=== PATIENT | male | born 1955 | race Caucasian/White ===

== ENCOUNTER 2023-02-09 10:14 | Emergency (ER) | payer MEDICARE, SELFPAY ==
[2023-02-09] VITALS (18 sets, daily range): BP systolic 145–197; BP diastolic 89–103; PULSE 54–85; RESP 14–16; TEMP 36.3; O2SAT 96–100; BMI 23.4
--- NOTE | 2023-02-09 10:23 | DI.RAD.S_ITS ---
PROCEDURE: XR FOOT LT MIN 3V INDICATIONS: infection, concern for osteo TECHNIQUE: 3 views of the foot were acquired. COMPARISON: None. FINDINGS: Bones: No fractures or dislocations. No suspicious bony lesions. Soft tissues: No tibiotalar joint effusion. Achilles tendon appears normal. IMPRESSION: No visualized acute fracture or dislocation. However, if clinical concern and/or pain persist, short interval imaging followup in 7-10 days is recommended, as occult injury cannot be definitively excluded. Dictated by: Ana Smith M.D. on 02/09/2023 at 11:23 Approved by: Ana Smith M.D. on 02/09/2023 at 11:24
[2023-02-09 10:59] LABS: Add Manual Diff / Slide Review NO; Basophils Absolute Auto 0 /uL (0-100); Basophils Percent Auto 0.6 % (0-2); Eosinophils Absolute Auto 100 /uL (0-450); Eosinophils Percent Auto 2.7 % (2-4); Hematocrit 36.7 % (41-53); Hemoglobin 12.4 g/dL (13.5-17.5); Lymphocytes Absolute Auto 800 /uL (1100-4500); Lymphocytes Percent Auto 19.9 % (25-40); Mean Corpuscular HGB Conc 33.7 % (30-36); Mean Corpuscular Hemoglobin 33.3 PG (26-34); Mean Corpuscular Volume 98.9 fL (80-100); Monocytes Absolute Auto 300 /uL (0-900); Monocytes Percent Auto 8.3 % (3-14); Neutrophils Absolute Auto 2800 /uL (1500-7000); Neutrophils Percent Auto 68.5 % (50-75); Platelet Count 231 X10^3/uL (150-400); Red Blood Cell Count 3.71 X10^6/uL (4.5-5.9); White Blood Cell Count 4.1 X10^3/uL (4.5-11.0)
[2023-02-09 11:10] LABS: Prothrombin Time 11.4 SECONDS (10.1-12.7)
[2023-02-09] MEDS: SODIUM CHLORIDE 0.9% 1,000 ML 1000 ML IV (11:10)
[2023-02-09 11:13] LABS: PTT Partial Thromboplastin Tim 29 SECONDS (26-36)
[2023-02-09 11:17] LABS: Lactate (Lactic Acid) 1.2 mmol/L (0.7-2.1)
[2023-02-09 11:18] LABS: Alanine Aminotransferase 20 IU/L (<50); Albumin 3.9 g/dL (3.5-5.0); Albumin Globulin Ratio 1.2 (1.0-2.8); Alkaline Phosphatase 65 U/L (38-126); Aspartate Aminotransferase 33 IU/L (17-59); BUN Creatinine Ratio 8.6 (6-22); Bilirubin Total 0.4 mg/dL (0.2-1.3); Blood Urea Nitrogen 5 mg/dL (9-20); Calcium 8.9 mg/dL (8.4-10.2); Carbon Dioxide 28 mmol/L (22-32); Chloride 106 mmol/L (98-107); Estimated Glomerular Filt Rate > 60 mL/min (>60); Globulin 3.2 g/dL (1.7-4.1); Glucose 79 mg/dL (80-110); HEMOLYSIS < 15 (0-50); Lipase 73 U/L (23-300); Potassium 3.8 mmol/L (3.4-5.1); Sodium 141 mmol/L (137-145); Total Protein 7.1 g/dL (6.3-8.2)
[2023-02-09 11:35] LABS: Procalcitonin 0.06 ng/mL (<0.5)
--- NOTE | 2023-02-09 12:48 | ED.SKABFB ---
HPI - Skin/Abscess/Foreign Bdy General Chief complaint: Skin/Abscess/Foreign Body Stated complaint: Infection in left foot, Sent from the walk in Time Seen by Provider: 02/09/23 12:14 Source: patient Mode of arrival: Ambulatory Limitations: no limitations History of Present Illness HPI narrative: Patient sent here from walk-in clinic for complaints of left foot infection. Patient states foot/toe pain ongoing for least 2 months. 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 Denies any fever chills. History of gout disease he is thinks. No history of diabetes. Boot and sock removed. Patient has not been seen by any provider for this infection. Has extensive erosion of the skin on 1st 4 toes. Has necrotic tissue with overlapping granulation tissue on these toes as well. Related Data Home Medications Medication Instructions Recorded Confirmed No Known Home Medications 02/09/23 02/09/23 Allergies Allergy/AdvReac Type Severity Reaction Status Date / Time No Known Drug Allergies Allergy Verified 02/09/23 10:22 Review of Systems Review of Systems Narrative: GENERAL: negative chills, fatigue, malaise, fever, sweats. HEENT: negative sinus pain, ear pain, sore throat RESPIRATORY: negative dyspnea, cough CARDIOVASCULAR: negative chest pain, palpitations GASTROINTESTINAL: negative nausea, vomiting, abdominal pain : negative dysuria, frequency, hematuria MUSCULOSKELETAL: Positive muscle or bony pain SKIN: negative rash, skin lesions, positive skin wound NEUROLOGIC: negative weakness, numbness ROS Unobtainable: All systems reviewed & are unremarkable except as noted in HPI and below Patient History Family History Father Diabetes mellitus Sister Age: 68 Hypertension Social History Smoking Status: Never smoker Smoking Status: Never smoker alcohol intake frequency: 0-2 drinks per day Substance Use Type: does not use Exam Narrative Exam Narrative: GENERAL: in no distress, not toxic not dyspneic HEAD: Normocephalic. EYES: Pupils equal round EXTREMITIES: No gross deformities. Examination left foot and ankle. Foot is malodorous. There is extensive skin erosion cellulitis necrotic skin to the 1st 4 toes. Sparing the 5th toe. Palpable pedal pulse. Foot otherwise warm and pink and soft. No crepitus. No pain out of proportion to exam NEURO: AOx4. SKIN: Warm and dry PSYCH: Not anxious, is cooperative Initial Vital Signs Initial Vital Signs: Vital Signs Temperature 97.4 F L 02/09/23 10:19 Pulse Rate 74 02/09/23 10:19 Respiratory Rate 14 02/09/23 10:19 Blood Pressure 178/103 H 02/09/23 10:19 Pulse Oximetry 99 02/09/23 10:19 Oxygen Delivery Method Room Air 02/09/23 10:19 Course Orders Ordered: Discontinued Medications Diphtheria/Tetanus/Acell Pertussis (Tet,Diph,Pertuss(Acell),Vac/Pf 0.5 Ml Syringe) 0.5 ml IM .ONCE ONE Stop: 02/09/23 14:43 Last Admin: 02/09/23 16:19 Dose: 0.5 ml Documented By: RB Sodium Chloride (Normal Saline 0.9%) 1,000 mls @ 1,000 mls/hr IV BOLUS ONE Stop: 02/09/23 11:22 Last Infusion: 02/09/23 12:29 Dose: 0 mls/hr Documented By: Admin: 02/09/23 11:10 Dose: 1,000 mls/hr Documented By: AT Ceftriaxone Sodium 2,000 mg/ (Sodium Chloride) 100 mls @ 200 mls/hr IV NOW ONE Stop: 02/09/23 14:45 Last Infusion: 02/09/23 16:47 Dose: 0 mls/hr Documented By: Admin: 02/09/23 16:19 Dose: 200 mls/hr Documented By: RB Vancomycin HCl (Vancomycin) 1,250 mg in 250 mls @ 166.667 mls/hr IV Q8H LILIAN Last Infusion: 02/09/23 16:44 Dose: 0 mls/hr Documented By: Admin: 02/09/23 16:44 Dose: 166.667 mls/hr Documented By: RB Morphine Sulfate (Morphine 4 Mg/Ml Inj) 4 mg IV NOW ONE Stop: 02/09/23 14:19 Last Admin: 02/09/23 14:42 Dose: 4 mg Documented By: RB Morphine Sulfate (Morphine 4 Mg/Ml Inj) 4 mg IV NOW ONE Stop: 02/09/23 16:45 Last Admin: 02/09/23 16:46 Dose: 4 mg Documented By: RB Ondansetron HCl (Ondansetron 4 Mg/2 Ml Inj) 4 mg IV NOW PRN PRN Reason: Nausea And Vomiting Ondansetron HCl (Ondansetron 4 Mg/2 Ml Inj) 4 mg IV NOW ONE Stop: 02/09/23 14:19 Last Admin: 02/09/23 14:42 Dose: 4 mg Documented By: EVANGELINA Vancomycin HCl (Vancomycin Per Pharmacy) 1 request MISC NOW ONE Stop: 02/09/23 14:19 Last Admin: 02/09/23 16:08 Dose: Not Given Documented By: EVANGELINA Vancomycin HCl (Vancomycin Trough) 1 request MISC 1430 ONE Stop: 02/10/23 14:31 Vital Signs Vital signs: Vital Signs - 8 hr 02/09/23 10:19 02/09/23 10:45 02/09/23 11:00 Temperature 97.4 F L Pulse Rate 74 75 Respiratory Rate 14 Blood Pressure 178/103 H 145/89 H Pulse Oximetry 99 98 Oxygen Delivery Method Room Air Room Air 02/09/23 11:00 02/09/23 11:30 02/09/23 12:00 Temperature Pulse Rate 67 59 L 54 L Respiratory Rate 16 Blood Pressure Pulse Oximetry 98 100 99 Oxygen Delivery Method 02/09/23 12:16 02/09/23 12:16 02/09/23 12:30 Temperature Pulse Rate 72 77 Respiratory Rate Blood Pressure 189/94 H Pulse Oximetry 100 99 Oxygen Delivery Method 02/09/23 12:31 02/09/23 12:31 02/09/23 13:00 Temperature Pulse Rate 78 Respiratory Rate Blood Pressure 197/98 H 177/94 H Pulse Oximetry 99 Oxygen Delivery Method 02/09/23 13:00 02/09/23 13:30 02/09/23 13:30 Temperature Pulse Rate 71 68 Respiratory Rate Blood Pressure 164/92 H Pulse Oximetry 98 98 Oxygen Delivery Method 02/09/23 14:00 02/09/23 14:00 02/09/23 14:15 Temperature Pulse Rate 70 75 Respiratory Rate Blood Pressure 179/93 H Pulse Oximetry 98 98 Oxygen Delivery Method 02/09/23 14:15 02/09/23 14:30 02/09/23 14:30 Temperature Pulse Rate 75 Respiratory Rate 16 Blood Pressure 178/89 H 175/95 H Pulse Oximetry 98 Oxygen Delivery Method Room Air MDM - Skin/Abscess/Foreign Bdy Lab Data 02/09/23 10:40 02/09/23 10:40 Labs: Lab Results 02/09/23 02/09/23 02/09/23 Range/Units 10:40 10:40 10:40 WBC 4.1 L (4.5-11.0) X10^3/uL RBC 3.71 L (4.5-5.9) X10^6/uL Hgb 12.4 L (13.5-17.5) g/dL Hct 36.7 L (41-53) % MCV 98.9 (80-100) fL MCH 33.3 (26-34) PG MCHC 33.7 (30-36) % RDW 14.0 (11.6-14.8) % Plt Count 231 (150-400) X10^3/uL Neut % (Auto) 68.5 (50-75) % Lymph % (Auto) 19.9 L (25-40) % [place] % (Auto) 8.3 (3-14) % Eos % (Auto) 2.7 (2-4) % Baso % (Auto) 0.6 (0-2) % Neut # (Auto) 2800 (4509-2170) /uL Lymph # (Auto) 800 L (7064-0583) /uL [place] # (Auto) 300 (0-900) /uL Eos # (Auto) 100 (0-450) /uL Baso # (Auto) 0 (0-100) /uL PT 11.4 (10.1-12.7) SECONDS INR 1.0 (0.9-1.3) APTT 29 (26-36) SECONDS Sodium 141 (137-145) mmol/L Potassium 3.8 (3.4-5.1) mmol/L Chloride 106 (98-107) mmol/L Carbon Dioxide 28 (22-32) mmol/L BUN 5 L (9-20) mg/dL Creatinine 0.58 L (0.66-1.25) mg/dL Estimated GFR > 60 (>60) mL/min BUN/Creatinine Ratio 8.6 (6-22) Glucose 79 L (80-110) mg/dL Lactate (0.7-2.1) mmol/L Calcium 8.9 (8.4-10.2) mg/dL Total Bilirubin 0.4 (0.2-1.3) mg/dL AST 33 (17-59) IU/L ALT 20 (<50) IU/L Alkaline Phosphatase 65 (38-126) U/L Total Protein 7.1 (6.3-8.2) g/dL Albumin 3.9 (3.5-5.0) g/dL Globulin 3.2 (1.7-4.1) g/dL Albumin/Globulin Ratio 1.2 (1.0-2.8) Lipase 73 (23-300) U/L Procalcitonin 0.06 (<0.5) ng/mL SARS-CoV-2 (PCR) (Negative) 02/09/23 02/09/23 Range/Units 10:40 12:26 WBC (4.5-11.0) X10^3/uL RBC (4.5-5.9) X10^6/uL Hgb (13.5-17.5) g/dL Hct (41-53) % MCV (80-100) fL MCH (26-34) PG MCHC (30-36) % RDW (11.6-14.8) % Plt Count (150-400) X10^3/uL Neut % (Auto) (50-75) % Lymph % (Auto) (25-40) % [place] % (Auto) (3-14) % Eos % (Auto) (2-4) % Baso % (Auto) (0-2) % Neut # (Auto) (9021-9724) /uL Lymph # (Auto) (9587-6723) /uL [place] # (Auto) (0-900) /uL Eos # (Auto) (0-450) /uL Baso # (Auto) (0-100) /uL PT (10.1-12.7) SECONDS INR (0.9-1.3) APTT (26-36) SECONDS Sodium (137-145) mmol/L Potassium (3.4-5.1) mmol/L Chloride (98-107) mmol/L Carbon Dioxide (22-32) mmol/L BUN (9-20) mg/dL Creatinine (0.66-1.25) mg/dL Estimated GFR (>60) mL/min BUN/Creatinine Ratio (6-22) Glucose (80-110) mg/dL Lactate 1.2 (0.7-2.1) mmol/L Calcium (8.4-10.2) mg/dL Total Bilirubin (0.2-1.3) mg/dL AST (17-59) IU/L ALT (<50) IU/L Alkaline Phosphatase (38-126) U/L Total Protein (6.3-8.2) g/dL Albumin (3.5-5.0) g/dL Globulin (1.7-4.1) g/dL Albumin/Globulin Ratio (1.0-2.8) Lipase (23-300) U/L Procalcitonin (<0.5) ng/mL SARS-CoV-2 (PCR) Negative (Negative) Imaging Data Extremity x-ray #1: Radiologist's Impression: PROCEDURE: XR FOOT LT MIN 3V INDICATIONS: infection, concern for osteo TECHNIQUE: 3 views of the foot were acquired. COMPARISON: None. FINDINGS: Bones: No fractures or dislocations. No suspicious bony lesions. Soft tissues: No tibiotalar joint effusion. Achilles tendon appears normal. IMPRESSION: No visualized acute fracture or dislocation. However, if clinical concern and/or pain persist, short interval imaging followup in 7-10 days is recommended, as occult injury cannot be definitively excluded. Dictated by: Ana Smith M.D. on 02/09/2023 at 11:23 Approved by: Ana Smith M.D. on 02/09/2023 at 11:24 Extremity x-ray #2: Radiologist's Impression: PROCEDURE:? MR FOOT LT WO/W CON ? INDICATIONS:? Left foot infection ? TECHNIQUE:? Noncontrast coronal T1 spin echo and STIR, sagittal T1 spin echo with fat saturation and STIR, axial T1 spin echo and T2 fast spin echo with fat saturation.? After the administration of contrast, axial/sagittal/coronal T1 spin echo with fat saturation through the left foot.? ? [facility], 10:26. ? FINDINGS:? Image quality:? Excellent.? ? Bones:? Bipartite lateral sesamoid of 1st metatarsal head is seen.? There is marrow edema involving medial sesamoid of 1st metatarsal head.? No discrete fracture line is seen.? Moderate osteoarthritic changes are seen involving articulation between 1st metatarsal head and medial sesamoid bone.? [id number]-[id number] osteoarthritic changes are also noted involving rest of the midfoot and forefoot joints particularly involving 1st MTP joint.? No other area of marrow edema.? No metatarsal stress fractures.? No suspicious intraosseous lesion or area of abnormal intraosseous enhancement ? Soft tissues:? Soft tissue edema and swelling over dorsal aspect of midfoot and forefoot is seen .? No discrete drainable peripherally enhancing fluid collection is seen.? No enhancing soft tissue mass.? The scanned muscles demonstrate normal overall bulk and internal signal.? Extensor and flexor tendons of left foot are intact.? Lisfranc ligament and joint is intact. ? IMPRESSION:? 1. Soft tissue swelling and edema over dorsal aspect of midfoot and forefoot which may indicate cellulitis.? No discrete drainable abscess collection is noted. ? 2. Osteoarthritic changes throughout midfoot and forefoot joints with suggestion of sesamoiditis involving medial sesamoid of 1st metatarsal bone.? No definite MR evidence of osteomyelitis.? No metatarsal stress fractures. ? 3. Extensor tendons and ligaments are intact.? No enhancing soft tissue mass.? No abnormal intramuscular enhancement. ? ? Dictated by: Truman Campos M.D. on 02/09/2023 at 15:52 ? ? Approved by: Truman Campos M.D. on 02/09/2023 at 16:04 ? [facility] Narrative Medical decision making narrative: Patient sent here from walk-in clinic for complaints of left foot infection. Patient states foot/toe pain ongoing for least 2 months. 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 Denies any fever chills. History of gout disease he is thinks. No history of diabetes. Boot and sock removed. Patient has not been seen by any provider for this infection. Has extensive erosion of the skin on 1st 4 toes. Has necrotic tissue with overlapping granulation tissue on these toes as well. After history and exam CBC CMP procalcitonin lactic acid x-ray left foot ordered vancomycin GUNJAN CC: Left foot infection Complicating co-morbidities: Ongoing 2 months Data collected from: Patient Medical records reviewed: Seen at walk-in clinic prior to arrival Differential considered: Includes but not limited to diabetic foot/cellulitis/necrotizing fasciitis/osteomyelitis Exam documented above, pertinent findings include: Necrotic tissue of the toes Lab Test results independently reviewed as above. Pertinent findings: WBC 4.1 hemoglobin 12.4 sodium 141 potassium 3.8 creatinine 0.58 glucose 79 lactic acid 1.2 procalcitonin 0.06 Imaging studies independently reviewed: PROCEDURE:? XR FOOT LT MIN 3V ? INDICATIONS:? infection, concern for osteo ? TECHNIQUE:? 3 views of the foot were acquired.? ? COMPARISON:? None. ? FINDINGS:? ? Bones:? No fractures or dislocations.? No suspicious bony lesions.? ? Soft tissues:? No tibiotalar joint effusion.? Achilles tendon appears normal.? ? ? IMPRESSION:? No visualized acute fracture or dislocation. However, if clinical concern and/or pain persist, short interval imaging followup in 7-10 days is recommended, as occult injury cannot be definitively excluded. ? ? Dictated by: Ana Smith M.D. on 02/09/2023 at 11:23 ? ? Approved by: Ana Smith M.D. on 02/09/2023 at 11:24 ? PROCEDURE:? MR FOOT LT WO/W CON ? INDICATIONS:? Left foot infection ? TECHNIQUE:? Noncontrast coronal T1 spin echo and STIR, sagittal T1 spin echo with fat saturation and STIR, axial T1 spin echo and T2 fast spin echo with fat saturation.? After the administration of contrast, axial/sagittal/coronal T1 spin echo with fat saturation through the left foot.? ? COMPARISON:? [facility], , XR FOOT LT MIN 3V, 02/09/2023, 10:26. ? FINDINGS:? Image quality:? Excellent.? ? Bones:? Bipartite lateral sesamoid of 1st metatarsal head is seen.? There is marrow edema involving medial sesamoid of 1st metatarsal head.? No discrete fracture line is seen.? Moderate osteoarthritic changes are seen involving articulation between 1st metatarsal head and medial sesamoid bone.? Yiwg-sv-[id number] osteoarthritic changes are also noted involving rest of the midfoot and forefoot joints particularly involving 1st MTP joint.? No other area of marrow edema.? No metatarsal stress fractures.? No suspicious intraosseous lesion or area of abnormal intraosseous enhancement ? Soft tissues:? Soft tissue edema and swelling over dorsal aspect of midfoot and forefoot is seen .? No discrete drainable peripherally enhancing fluid collection is seen.? No enhancing soft tissue mass.? The scanned muscles demonstrate normal overall bulk and internal signal.? Extensor and flexor tendons of left foot are intact.? Lisfranc ligament and joint is intact. ? IMPRESSION:? 1. Soft tissue swelling and edema over dorsal aspect of midfoot and forefoot which may indicate cellulitis.? No discrete drainable abscess collection is noted. ? 2. Osteoarthritic changes throughout midfoot and forefoot joints with suggestion of sesamoiditis involving medial sesamoid of 1st metatarsal bone.? No definite MR evidence of osteomyelitis.? No metatarsal stress fractures. ? 3. Extensor tendons and ligaments are intact.? No enhancing soft tissue mass.? No abnormal intramuscular enhancement. ? ? Dictated by: Truman Campos M.D. on 02/09/2023 at 15:52 ? ? Approved by: Truman Campos M.D. on 02/09/2023 at 16:04 ? Consultations: 1:[address] Marvin, on-call Orthopedics. We do have a problem with operating room whether materials are available due to recent contamination issues. Patient will likely need to be transferred. 1:[address] Fitch, podiatry with [facility]. He will see patient in consult if admitted to hospitalist. 1:[address] Palmer, podiatry with [facility], he will see patient in consult if admitted to hospitalist 2:[address] Marvin, at this time operating room may be able to accommodate certain cases including this patient. However, he states patient may not need urgent surgery today but may need IV antibiotics and will monitor for improvement, operating room may be able to accommodate tomorrow. He would like MRI of the foot to be done now. 12:25 p.m.. Spoke with [facility], hospitalist, Dr. Oshea, he will accept patient Treatments: Vancomycin, Rocephin, morphine, Zofran Re-evaluations: Reviewed results with patient. Agrees for transfer, needs IV antibiotics possible surgery. Discussion: Appropriate for admission. Patient will need IV antibiotics and likely debridement of the skin. Diagnosis: Foot cellulitis Discharge Plan Departure Patient Disposition: Admitted As Inpatient Clinical Impression: Cellulitis
[2023-02-09 12:51] LABS: COVID19 -Nasal RAPID Negative (Negative)
--- NOTE | 2023-02-09 14:39 | DI.MRI.S_ITS ---
PROCEDURE: MR FOOT LT WO/W CON INDICATIONS: Left foot infection TECHNIQUE: Noncontrast coronal T1 spin echo and STIR, sagittal T1 spin echo with fat saturation and STIR, axial T1 spin echo and T2 fast spin echo with fat saturation. After the administration of contrast, axial/sagittal/coronal T1 spin echo with fat saturation through the left foot. COMPARISON: [facility], CR, XR FOOT LT MIN 3V, 02/09/2023, 10:26. FINDINGS: Image quality: Excellent. Bones: Bipartite lateral sesamoid of 1st metatarsal head is seen. There is marrow edema involving medial sesamoid of 1st metatarsal head. No discrete fracture line is seen. Moderate osteoarthritic changes are seen involving articulation between 1st metatarsal head and medial sesamoid bone. Llgz-ac-[id number] osteoarthritic changes are also noted involving rest of the midfoot and forefoot joints particularly involving 1st MTP joint. No other area of marrow edema. No metatarsal stress fractures. No suspicious intraosseous lesion or area of abnormal intraosseous enhancement Soft tissues: Soft tissue edema and swelling over dorsal aspect of midfoot and forefoot is seen . No discrete drainable peripherally enhancing fluid collection is seen. No enhancing soft tissue mass. The scanned muscles demonstrate normal overall bulk and internal signal. Extensor and flexor tendons of left foot are intact. Lisfranc ligament and joint is intact. IMPRESSION: 1. Soft tissue swelling and edema over dorsal aspect of midfoot and forefoot which may indicate cellulitis. No discrete drainable abscess collection is noted. 2. Osteoarthritic changes throughout midfoot and forefoot joints with suggestion of sesamoiditis involving medial sesamoid of 1st metatarsal bone. No definite MR evidence of osteomyelitis. No metatarsal stress fractures. 3. Extensor tendons and ligaments are intact. No enhancing soft tissue mass. No abnormal intramuscular enhancement. Dictated by: Truman Campos M.D. on 02/09/2023 at 15:52 Approved by: Truman Campos M.D. on 02/09/2023 at 16:04
[2023-02-09] MEDS: ONDANSETRON 4 MG/2 ML INJ IV (14:42)
[2023-02-09] MEDS: MORPHINE 4 MG/ML INJ IV ×2 (14:42→16:46)
[2023-02-09] MEDS: cefTRIAXone 2,000 MG in SODIUM CHLORIDE 0.9% 100 ML 200 MG IV (16:19)
[2023-02-09] MEDS: TET,DIPH,PERTUSS(ACELL),VAC/PF 0.5 ML SYRINGE IM (16:19)
--- NOTE | 2023-02-09 16:26 | PC.NURSE ---
Patient left for MRI when there was a pharmacy dose vancomycin order. Patient not in room to receive IV antibiotics when ordered. This RN began administration upon return.
[2023-02-09] MEDS: VANCOMYCIN 1,250 MG/250 ML PIGGYBACK 166.667 MG IV (16:44)
--- NOTE | 2023-02-09 16:45 | PC.NURSE ---
Vanncomycin 1.25g per 250ml scanned and given to SANDRITA Bruce Dassel transport for administration in route.
--- OUTSIDE RECORDS SUMMARY | 2023-10-28 08:59 | XMS_ITS ---
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, left ([facility]) Trina Watkins DO [address] [place] [address] [address] Referral ID Status Reason Start Date Expiration Date Visits Requested Visits Authorized [id number] Authorized Specialty Services Required 02/12/2023 02/07/2024 6 6 Reason for Visit * Auth/Cert (Routine) Specialty Diagnoses / Procedures Referred By Marshall patel Referred To Contact Diagnoses 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, left ([facility]) Procedures INPATIENT Referral ID Status Reason Start Date Expiration Date Visits Re quested Visits Authorized [id number] 1 1 Encounter Details Date Type Department Care Team Description 02/09/2023 5:33 PM PDT - 02/13/2023 1:50 PM PDT Hospital Encounter [facility] [address] [place], [place] [id number] Monty Oshea DO [address], [place] [id number] Figueroa Robbins MD [address] [place], [place] [id number] Trina Watkins DO [address] [place] [address] Dior Coy MD 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, left ([facility]-HCC) (Primary Dx) Discharge Disposition: Home/Self Care Allergies No known active allergiesdocumented as of this encounter (statuses as of 10/08/2023) Medications Medication Sig Dispensed Refills Start Date End Date Status ibuprofen (ADVIL,MOTRIN) 200 mg tablet Take 1 tablet (200 mg total) by mouth every 6 (six) hours as needed for mild pain 0 Active lactobacillus rhamnosus GG (CULTURELLE) 10 billion cell Take 1 capsule by mouth daily 3000 capsule 11 02/12/2023 02/12/2024 Active amoxicillin-pot clavulanate (AUGMENTIN) 875-125 mg Take 1 tablet by mouth 2 (two) times a day for 14 days 28 tablet 0 02/13/2023 02/27/2023 HYDROcodone-acetam inophen (NORCO) 5-325 mgIndications:Shipping Checker marleny foot ulcer with necrosis of bone, left (CMS-HCC) Take 1 tablet by mouth every 4 (four) hours as needed for moderate pain for up to 7 days 30 tablet 0 02/12/2023 02/19/2023 lisinopriL (PRINIVIL) 10 mg tablet Take 1 tablet (10 mg total) by mouth daily 30 tablet 0 02/13/2023 03/15/2023 acetaminophen (TYLENOL) 325 mg tablet Take 2 tablets (650 mg total) by mouth every 4 (four) hours as needed for mild pain ((1-3)) for up to 10 days 30 tablet 0 02/12/2023 02/22/2023 polyethylene glycol (GLYCOLAX) 17 gram packet Take 17 g by mouth daily for 5 days 5 packet 0 02/13/2023 02/18/2023 documented as of this encounter (statuses as of 10/08/2023) Active Problems Problem Noted Date Diagnosed Date 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 No 02/10/2023 Within the last year, have y ou been humiliated or emotionally abused in other ways by your partner or ex-partner? No Within the last year, have y ou been kicked, hit, slapped, or otherwise physically hurt by your partner or ex-partner? No 02/10/2023 Within the last year, have y ou been raped or forced to have any kind of sexual activity by your partner or ex-partner? No 02/10/2023 Overall Financial Resource Strain (CARDIA) Answe r Date Recorded How hard is it for you to pa y for the very basics like food, housing, medical care, and heating? Not very hard 02/10/2023 Hunger Vital Sign Answer Date Recorded Within the past 12 months, y ou worried that your food would run out before you got the money to buy more. Never true 02/11/20 23 Within the past 12 months, t he food you bought just didn't last and you didn't have money to get more. Never true 02/10/2023 PRAPARE - Transportation Answer Date Re corded In the past 12 months, has l ack of transportation kept you from medical appointments or from getting medications? No 01/27 In the past 12 months, has l ack of transportation kept you from meetings, work, or from getting things needed for daily living? No 02/10/2023 Housing Stability Vital Sign Answer Antonio e Recorded In the last 12 months, was t here a time when you were not able to pay the mortgage or rent on time? No 02/10/2023 In the last 12 months, how many places have you lived? 0 02/10/2023 In the last 12 months, was t here a time when you did not have a steady place to sleep or slept in a usp (including now)? No 02/10/2023 Sex and Gender Information Value Date Recorded Sex Assigned at Male 02/09/2023 6:46 PM PDT Gender Identity Male 02/09/2023 6:46 PM PDT Sexual Orientation Straight 02/09/2023 6: 46 PM PDT Job Start Date Occupation Industry Not on file Not on file Not on file COVID-19 Exposure Response Date Recorded In the last 10 days, have yo u been in contact with someone who was confirmed or suspected to have Coronavirus/COVID-19? No / Unsure 02/10/2023 7:21 PM PDT documented as of this encounter Last Filed Vital Signs Vital Sign Reading Time Taken Comments Blood Pressure 129/69 02/13/2023 8:09 AM PDT Pulse 68 02/13/2023 8:09 AM PDT Temperature 36.9 ??C (98.4 ??F) 02/13/2023 8:09 AM PD T Respiratory Rate 20 02/13/2023 8:09 AM PDT Oxygen Saturation 98% 02/13/2023 8:09 AM PDT Inhaled Oxygen Concentration - - Weight 75.1 kg (165 lb 9.1 oz) 02/09/2023 5:39 PM PDT Height 182.9 cm (6' 0.01) 02/09/2023 5:39 PM PD T Body Mass Index 22.45 02/09/2023 5:39 PM PDT documented in this encounter Discharge Summaries * Trina Watkins DO - 02/13/2023 7:27 AM PDT [facility]: DISCHARGE SUMMARY Patient Name: Henry Thomas Date of : 1955 Age: 67 y.o. Code Status: Full Code Primary Care Physician: None Selected Pcp Admitting Provider: Dior Coy MD Attending Provider: Trina Watkins DO Admit Date: 02/09/2023 Hospital Day: 3 Follow up plan: Follow up with PCP (None Selected Pcp) within 6 days. Pending Tests and other issues requiring follow up: Multidisciplinary Rounds Note: The patient was discussed with the RN on the day of this note : YES, non bedside. Brief Reason for Admission From the H&P performed by Dior Coy MD on 02/09/2023: Henry Thomas is a 67 y.o. male with no significant past medical history who was transferred [facility] for surgical intervention of his left foot. Hospital Course Summary Statement: The patient was admitted to the hospital for a wound ulcer that needed to be seen by podiatry patient was started immediately on IV antibiotics and then transition to oral antibiotics upon discharge. Patient was seen by podiatry who did a bedside debridement on February 10 and and was seen by wound care as well. At this time they are recommending the patient discharged home on Augmentin 875 mg twice daily and follow-up at [facility] for treatment at [facility] and using hyperbaric oxygen therapy. Patient is able to weight bear as tolerated in the post op shoe per podiatry. Of note the patient was found to be prediabetic with a hemoglobin A1c of 5.7. Patient was educated on carb consistent diet. Patient states that he will follow-up with primary care. Patient was also started on 10 mg of lisinopril due to the patient having significant hypertension. Patient will follow-up with PCP who will either increase or decrease this medication. By problem: Chronic necrotic ulcers??of the left foot,??present on admission. ??Active. -X-ray foot negative for osteomyelitis -MRI shows??soft tissue swelling and edema no discreet abcesses, osteoarthritis noted -CRP??wnl -No blood cultures taken on admission -MRSA screen negative -Afebrile, no leukocytosis -No evidence of claudication,??good peripheral pulses -Tdap administered at [facility] -Pain??management?? -Podiatry consulted and feel that this might have been secondary to frostbite -Bedside debridement on 02/10 and 02/12 -Continue Rocephin 2 g daily discontinued 02/12 -Start Augmentin 875mg BID for 14 days on 02/13 -Discontinue vancomycin 02/11 ?? Hypertension, present admission. ??Active. -Hypertensive at [facility] at 178/103, not on any home antihypertensives -Lisinopril 10mg daily initiated? Prediabetes, present on admission, active -Hemoglobin A1c 5.7 -Patient counseled on weight loss and decreasing carbs ?? Alcohol dependence, present condition. ??Active. -3 to 4 glasses??of red wine nightly -Has never gone through withdrawal -[facility] protocol in place currently no signs of withdrawal -Daily thiamine and vitamin ?? Chronic problems: -Possible gout, not on any home medications? 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 Discharge Medications Medication List START taking these medications acetaminophen 325 mg tablet Commonly known as: TYLENOL Take 2 tablets (650 mg total) by mouth every 4 (four) hours as needed for mild pain ((1-3)) for up to 10 days amoxicillin-pot clavulanate 875-125 mg Commonly known as: AUGMENTIN Take 1 tablet by mouth 2 (two) times a day for 14 days HYDROcodone-acetaminophen 5-325 mg Commonly known as: NORCO Take 1 tablet by mouth every 4 (four) hours as needed for moderate pain for up to 7 days lactobacillus rhamnosus GG 10 billion cell Commonly known as: CULTURELLE Take 1 capsule by mouth daily lisinopriL 10 mg tablet Commonly known as: PRINIVIL Take 1 tablet (10 mg total) by mouth daily polyethylene glycol 17 gram packet Commonly known as: GLYCOLAX Take 17 g by mouth daily for 5 days CONTINUE taking these medications ibuprofen 200 mg tablet Commonly known as: ADVIL,MOTRIN Where to Get Your Medications These medications were sent to [id number] [address] acetaminophen 325 mg tablet amoxicillin-pot clavulanate 875-125 mg HYDROcodone-acetaminophen 5-325 mg lactobacillus rhamnosus GG 10 billion cell lisinopriL 10 mg tablet polyethylene glycol 17 gram packet OBJECTIVE First recorded vitals: Temp: 36.2 ??C (97.1 ??F) - BP: (!) 186/98 - Heart Rate: 79 - Resp: 18 - SpO2: 97 % Most recent vitals: Temp: 36.8 ??C (98.3 ??F) - BP: (!) 144/88 - Heart Rate: 73 - Resp: 16 - SpO2: 99 % I have seen and examined Henry Thomas on 02/13/2023. LABS & DIAGNOSTICS Hematology Results from last 7 days Lab Units 02/12/23 0615 02/11/23 0536 02/10/23 0558 WBC AUTO x10e3/uL 4.3 5.0 4.0 HEMOGLOBIN g/dL 10.7* 10.2* 10.2* HEMATOCRIT % 32.0* 31.9* 31.6* MCV fL 99 104* 103* PLATELETS AUTO x10e3/uL 176 185 186 Chemistry Results from last 7 days Lab Units 02/12/23 0615 02/11/23 0536 02/10/23 0558 02/09/23 1826 SODIUM mmol/L 138 136 136 141 POTASSIUM mmol/L 3.9 4.3 4.0 4.8 CHLORIDE mmol/L 108* 106 108* 110* CO2 mmol/L 27 26 26 24 BUN mg/dL 6.6* 7.9* 9.2 5.1* CREATININE mg/dL 0.56* 0.59* 0.60* 0.57* GLUCOSE mg/dL 85 100* 92 70 CALCIUM, SERUM mg/dL 8.5 8.7 8.3* 8.4* MAGNESIUM mg/dL 1.8 -- -- -- AST U/L 19 -- -- 36 ALT U/L 14 -- -- 18 BILIRUBIN TOTAL mg/dL 0.3 -- -- 0.4 ALBUMIN g/dL 2.8* -- -- 3.4 TOTAL PROTEIN g/dL 5.2* -- -- 6.1* Estimated Creatinine Clearance: 77.2 mL/min (A) (by C-G formula based on SCr of 0.56 mg/dL (L)). IMAGING No results found. Activity Usual activity as tolerated. Functional status prior to admission: (Optional): Ambulatory Functional expectation at discharge : (Optional): Ambulatory Advanced Care Planning Code Status: Full Code Allergies No Known Allergies This discharge summary has been routed to None Selected Pcp via [employer] srlet message or fax. Readmission Prevention: Has the discharge teach-back been completed: Yes Has a PCP appt been ordered post hospitalization 6 days after DC? Yes Has this been communicated with the PCP by the time the DC has taken place? N/A I spent 35 minutes in preparation of discharge for Henry Thomas. Greater than 50% of that timewas dedicated to patient counseling and coordination of care. Thank you for allowing me to participate in the care of Henry Thomas. Electronically signed by: Trina Watkins DO 02/13/2023 7:27 AM Portions of today's documentation have been created with the assistance of voice recognition software. Therefore, it may contain anomalous punctuation, anomalous independent misrecognitions, word substitutions, insertions or omissions. Occasional wrong-word or phonetically similar substitutions mayalso occur, all due to the inherent limitations of voice recognition software. Attempts to correct the above have been made by Trina Watkins DO but it is recommended that the chart be read carefully to recognize, using context, where the substitutions may have occurred. documented in this encounter Discharge Instructions * Discharge Instructions* Trina Watkins DO - 02/12/2023 4:44 PM PDT You were admitted to the hospital and it looks like you had an ulcer from abraham bite. Please continue to follow up with the wound care clinic and with a primary care clinic as well. It is recommendedthat you continue taking the medication Augmentin for the next 14 days starting tomorrow 02/13/23. Sometimes antibiotics can cause you to have loose stools, so it is recommended that you start taking a probiotic daily. If you have 3-4 bouts of diarrhea within one day please contact your primary care provider immediately. Please take your probiotic in the afternoon so that it does not interfere with your antibiotic. You are also now considered prediabetic and it is recommended that you decrease your carb intake and increase fresh fruits and vegetables. It was also noted that you have high blood pressure and it is recommended that you start lisinopril 10mg daily. It is also recommended that you see your primarycare doctor at least once a year. Please follow-up with your primary care provider in the next 6 days. If an appointment has not beenmade please call to schedule an appointment * Discharge Instr - Other Orders* Sondra Lagunas RN - 02/12/2023 7:11 PM PDT Wound Care Directions: -Ok to wash wounds in the shower but protect from direct spray for pain control. -Ok to wash wounds with clean or sterile water or wound cleanser (bottle in supplies). -Pat wounds dry. Cut small square of Aquacel Ag dressing and place between third and fourth toes.(This dressing is light perez, comes in a white and silver package) -Cut 2 pieces of Hydrofera Blue Ready (blue foam in white package) to cover toes. You can tape themlightly in place if needed while you wrap toes. -Wrap toes with long roll gauze to secure blue dressing in place. -Change dressings every 2 days, or if you notice they get wet, or if they are draining so much thatyou see blood or fluid on the dressings. -Seek immediate care if redness and swelling increases, or if your wounds begin to drain anything but clear fluid or bloody fluid. Either of these changes would indicate an infection. -Please follow up with [facility]. Your wounds need professional care to continue to heal. -Consider different boots that will not let your feet get wet. At least bring changes of socks to change into during the day to help keep feet dry. It was a pleasure to work with you. Sondra Maya RN, [facility] * Attachments The following attachments cannot be sent through Care Everywhere. * Prediabetes (General Information) ([place]) * Acetaminophen (By mouth) ([place]) * Amoxicillin/Clavulanate Potassium (By mouth) ([place]) * Hydrocodone/Acetaminophen (By mouth) ([place]) * Probiotic (By mouth) ([place]) * Lisinopril (By mouth) ([place]) * Narcotic Safety (Discharge Care) ([place]) documented in this encounter Medications at Time of Discharge Medication Sig Dispensed Refills Start Date End Date ibuprofen (ADVIL,MOTRIN) 200 mg tablet Take 1 tablet (200 mg total) by mouth every 6 (six) hours as needed for mild pain 0 lactobacillus rhamnosus GG (CULTURELLE) 10 billion cell Take 1 capsule by mouth daily 3000 capsule 11 02/12/2023 02/12/2024 acetaminophen (TYLENOL) 325 mg tablet Take 2 tablets (650 mg total) by mouth every 4 (four) hours as needed for mild pain ((1-3)) for up to 10 days 30 tablet 0 02/12/2023 02/22/2023 amoxicillin-pot clavulanate (AUGMENTIN) 875-125 mg Take 1 tablet by mouth 2 (two) times a day for 14 days 28 tablet 0 02/13/2023 02/27/2023 HYDROcodone-acetaminop hen (NORCO) 5-325 mgIndications: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 1955 Med. Record #: [id number] Date of Admission: 02/09/2023 Reason for Admission: Necrotic ulcers of left foot S: Follow up visit for new inpatient wound consult request r/t left foot toes B: Henry Thomas is a 67 y.o. male patient resting in bed. Patient has no past medical history on file. Dr. Palmer present at bedside. A: Wound 1-- Location: Multiple toes on left foot Description: Unknown etiology full thickness wounds Dimensions: affected great toe anterior and tip on plantar surface, 3rd and 4th toes, tip of fifth toe Base: red, granulating tissue mixed with dry eschar and adherent nonviable tissue Edges: irregular, attached Drainage: scant sanguinous Odor: none Periwound Skin: pale, nonpitting edema, minor maceration between 3rd and 4th toes Pain: 8/10 Capillary refill-- brisk Photo: Wound Care: Dr. Palmer debrided wet eschar from fourth toe, then toes covered in Hydrofera Blue Ready, with dryAquacel Ag placed between third and fourth toes. Wrapped in dry gauze and kerlix, VICENTA. Education: Educated patient on wound care performed and products used. Walked through wound care and dressing change plan. Supplies given to patient for several dressing changes until he can be seen at [facility]. Additional Note: Patient tolerated wound care well and is agreeing to plan to discharge likely tomorrow. He states he can perform wound care if needed until he is able to follow up with outpatient clinic. Recommendations: -Inpatient wound care to sign off with discharge -Contact Inpatient Wound Care if wound worsens Thank you for the consult and opportunity to participate in the care of this patient. Electronically signed by: Sondra Lagunas RN,[facility], 02/12/2023 7:03 PM * Trina Watkins DO - 02/12/2023 5:53 PM PDT [facility]: INPATIENT PROGRESS NOTE Patient Name: Henry Thomas Date of : 1955 Age: 67 y.o. Code Status: Full Code Primary Care Physician: None Selected Pcp Admitting Provider: Dior Coy MD Attending Provider: Trina Watkins DO Admit Date: 02/09/2023 Hospital Day: 3 [facility] ASSESSMENT & PLAN Henry Thomas is a 67 y.o. male with no significant past medical history who was transferred [facility] for surgical intervention of his left foot. Clinical Overview of hospital course: Medical problems (all reviewed 02/12/2023): Chronic necrotic ulcers??of the left foot,??present on admission. ??Active. -X-ray foot negative for osteomyelitis -MRI shows??soft tissue swelling and edema??no discreet abcesses, osteoarthritis noted -CRP??wnl -No blood cultures taken on admission -MRSA screen negative -Afebrile, no leukocytosis -No evidence of claudication,??good peripheral pulses -Tdap administered at [facility] -Pain??management?? -Podiatry consulted and feel that this might have been secondary to frostbite -Bedside debridement on 02/10 and 02/12 -Continue Rocephin 2 g daily discontinued 02/12 -Start Augmentin 875mg BID for 14 days on 02/13 -Discontinue vancomycin 02/11 ?? Hypertension, present admission. ??Active. -Hypertensive at [facility] at 178/103, not on any home antihypertensives -Lisinopril 10mg??daily??initiated? Prediabetes, present on admission, active -Hemoglobin A1c 5.7 -Patient counseled on weight loss and decreasing carbs ?? Alcohol dependence, present condition. ??Active. -3 to 4 glasses??of red wine nightly -Has never gone through withdrawal -[facility] protocol??in place currently no signs of withdrawal -Daily thiamine and vitamin ?? Chronic problems: -Possible gout, not on any home medications? VTE Prophylaxis:??heparin subcutaneous Tobacco/Marijuana Dependence:??Never smoked Body mass index is 22.45 kg/m??. Disposition: The patient seems to be responding well to IV antibiotics. At this time podiatry feelsthat the patient's ulcer secondary to frostbite. Case discussed with wound care Sondra and podiatry Dr. Palmer who did a bedside debridement today. Patient seems to be doing well and they will monitorthe patient overnight. As well as the patient remained stable he will most likely discharge home tomorrow and follow-up with wound care and hyperbaric treatment at [facility]. SUBJECTIVE Patient's Update Patient was seen and evaluated bedside. Patient states that his pain is well controlled and has no complaints at this time. Interval Update: No acute overnight events Multidisciplinary Rounds Note: The patient was discussed with the RN on the day of this note : YES, non bedside. OBJECTIVE First recorded vitals: Temp: 36.2 ??C (97.1 ??F) - BP: (!) 186/98 - Heart Rate: 79 - Resp: 18 - SpO2: 97 % Most recent vitals: Temp: 36.8 ??C (98.2 ??F) - BP: (!) 162/93 - Heart Rate: 65 - Resp: 16 - SpO2: 97 % Physical Exam General: AAO ??3, no acute distress HEENT: NCAT, EOMI. Membranes pink and moist without exudate. Neck: Neck supple, No JVD Lungs: CTAB, No wheezing, rales, rhonchi Cardiovascular: +S1/S2, RRR, No murmur auscultated Abdomen: Soft, NT/ND. Bowel sounds present Extremities: No cyanosis/clubbing/edema in the right, left lower extremity bandage wrapped clean dry and intact Neurological: CNII-XII grossly intact Psychiatry: Mood and Affect appropriate Nursing notes and vital signs reviewed Scheduled Hospital Meds: [START ON 02/13/2023] amoxicillin-pot clavulanate, 1 tablet, oral, BID heparin (porcine), 5,000 Units, subcutaneous, q12h LILIAN lisinopriL, 10 mg, oral, Daily vitamin, 1 tablet, oral, Daily thiamine (vitamin B1), 100 mg, intravenous push, Daily Or thiamine, 100 mg, oral, Daily LABS & DIAGNOSTICS Hematology Results from last 7 days Lab Units 02/12/23 0615 02/11/23 0536 02/10/23 0558 WBC AUTO x10e3/uL 4.3 5.0 4.0 HEMOGLOBIN g/dL 10.7* 10.2* 10.2* HEMATOCRIT % 32.0* 31.9* 31.6* MCV fL 99 104* 103* PLATELETS AUTO x10e3/uL 176 185 186 Chemistry Results from last 7 days Lab Units 02/12/23 0615 02/11/23 0536 02/10/23 0558 02/09/23 1826 SODIUM mmol/L 138 136 136 141 POTASSIUM mmol/L 3.9 4.3 4.0 4.8 CHLORIDE mmol/L 108* 106 108* 110* CO2 mmol/L 27 26 26 24 BUN mg/dL 6.6* 7.9* 9.2 5.1* CREATININE mg/dL 0.56* 0.59* 0.60* 0.57* GLUCOSE mg/dL 85 100* 92 70 CALCIUM, SERUM mg/dL 8.5 8.7 8.3* 8.4* MAGNESIUM mg/dL 1.8 -- -- -- AST U/L 19 -- -- 36 ALT U/L 14 -- -- 18 BILIRUBIN TOTAL mg/dL 0.3 -- -- 0.4 ALBUMIN g/dL 2.8* -- -- 3.4 TOTAL PROTEIN g/dL 5.2* -- -- 6.1* Estimated Creatinine Clearance: 77.2 mL/min (A) (by C-G formula based on SCr of 0.56 mg/dL (L)). IMAGING Electronically signed by: Trina Watkins DO 02/12/2023 5:56 PM Portions of today's documentation have been created with the assistance of voice recognition software. Therefore, it may contain anomalous punctuation, anomalous independent misrecognitions, word substitutions, insertions or omissions. Occasional wrong-word or phonetically similar substitutions mayalso occur, all due to the inherent limitations of voice recognition software. Attempts to correct the above have been made by Trina Watkins DO but it is recommended that the chart be read carefully to recognize, using context, where the substitutions may have occurred. * Sadi Palmer DPM - 02/12/2023 3:41 PM PDT Images from the original note were not included. Foot & Ankle Surgery Progress Note DARWIN Weathersdeja Rivera William Age/Gender 67 y.o. male Attending Trina Watkins DO Hosp Day # 3 PCP None Selected Pcp Date of Surgery: N/A Procedure: N/A Assessment: 1. Stable and healing LEFT hallux, 3rd, and 4th toe ulcerations without evidence of deep soft tissue or bone involvement. The dorsal LEFT 4th toe is the deepest with some concern for potential to involve the extensor tendon, but no evidence yet that it does. 2. Plan: 1. Wounds to the LEFT hallux, 3rd, and 4th toes were excisionally debrided via a 15 blade at bedside this afternoon. Sondra, toe pounder was present as well. Will apply Hydrofera blue and gauze bandages to the wound beds and he can DC with supplies to change the bandages daily in the similar manner. 2. WBAT in a p/o shoe LEFT. 3. Will help him get set up with wound care clinic in [place] for follow-up per pt preference. 4. Recommend he go out on Augmentin 875 BID x 14 days. Dispo: Per primary team, but ok to go from Podiatry perspective. Subjective: Pt seen at bedside this PM. States feeling much better. Less pain to the toes. Presently denies n/v/f/c/d/cp/sob. Objective: Vitals: Cardiac Rhythm: Sinus rhythm Resp: 16 Weight: 75.1 kg Tmax:Temp (24hrs), Av.8 ??C (98.2 ??F), Min:36.7 ??C (98.1 ??F), Max:36.9 ??C (98.4 ??F) SBPmax:Systolic (24hrs), Av , Min:161 , Max:168 DBPmax:Diastolic (24hrs), Av, Min:80, Max:93 I&O: Intake/Output Summary (Last 24 hours) at 02/12/2023 1541 Last data filed at 02/12/2023 1215 Gross per 24 hour Intake 200 ml Output 1050 ml Net -850 ml General: AAO x 4 Lower Extremities: Derm: Wounds to the dorsal LEFT hallux, hallux tip, 3rd toe, and 4th toe appear stable with granular tissue post debridement. No communication with the extensor tendons or bone. No malodor. Dorsal hallux wound with dry, stable appearing eschar. No ascending lymphangitis or drainage. Vasc: 2/4 DP and 2/4 PT left; CFT <3 to the digits left. Neuro: Gross protective sensation present to the left. MSK: Moderate tenderness to palpation LEFT 1,3,4 toe wounds. No gross deformity noted. Muscle strength is 5/5 with DF/PF, inversion, and eversion. Ankle joint, subtalar joint, midtarsal joint, tarsometatarsal joint, and metatarsophalangeal joint ROM WNL left. Labs: Recent Results (from the past 24 hour(s)) Comprehensive Metabolic Panel Collection Time: 02/12/23 6:15 AM Result Value Ref Range Sodium, Serum/Plasma 138 135 - 145 mmol/L Potassium, Serum/Plasma 3.9 3.5 - 5.2 mmol/L Chloride, Serum/Plasma 108 (H) 98 - 107 mmol/L CO2, Serum/Plasma 27 22 - 30 mmol/L Anion Gap, Serum/Plasma 3 3 - 11 mmol/L Urea Nitrogen, Serum/Plasma 6.6 (L) 8.0 - 27.0 mg/dL Creatinine, Serum/Plasma 0.56 (L) 0.76 - 1.27 mg/dL Glucose, Serum/Plasma 85 65 - 99 mg/dL Calcium, Serum/Plasma 8.5 8.5 - 10.1 mg/dL AST, Serum/Plasma 19 17 - 59 U/L ALT, Serum/Plasma 14 <50 U/L Alkaline Phosphatase, Serum/Plasma 47 25 - 160 U/L Total Protein, Serum/Plasma 5.2 (L) 6.3 - 8.2 g/dL eGFR, Serum/Plasma (CKD-EPI) 108 >60 (CKD-EPI) mL/min/1.73 m2 Albumin, Serum/Plasma 2.8 (L) 3.4 - 5.0 g/dL Bilirubin, Total, Serum/Plasma 0.3 0.2 - 1.3 mg/dL BUN/Creatinine Ratio, Serum/Plasma 11.8 6.0 - 24.0 Magnesium Collection Time: 02/12/23 6:15 AM Result Value Ref Range Magnesium, Serum/Plasma 1.8 1.6 - 2.4 mg/dL Complete blood count with diff Collection Time: 02/12/23 6:15 AM Result Value Ref Range WBC Auto 4.3 3.8 - 10.1 x10e3/uL RBC 3.23 (L) 4.40 - 5.80 x10e6/uL Hemoglobin 10.7 (L) 13.8 - 17.2 g/dL Hematocrit 32.0 (L) 41.0 - 50.0 % MCV 99 81 - 100 fL MCH 33.1 27.0 - 35.0 pg MCHC 33.4 32.0 - 37.0 g/dL RDW 13.7 12.3 - 15.4 % Platelets 176 150 - 400 x10e3/uL MPV 9.5 7.4 - 10.4 fL NRBC % 0 0 /100 WBCs Abs. NRBC 0.0 x10e3/uL % Neutrophils 65 % % Lymphocytes 22 % % Monocytes 10 % % Eosinophils 2 % % Basophils 1 % Abs. Neutrophils 2.8 1.6 - 6.9 x10e3/uL Abs. Lymphocytes 0.9 (L) 1.1 - 4.8 x10e3/uL Abs. Monocytes 0.4 0.0 - 1.0 x10e3/uL Abs. Eosinophils 0.1 0.0 - 0.5 x10e3/uL Abs. Basophils 0.0 0.0 - 0.4 x10e3/uL Abs. Neutrophils (Auto) 2,800.0 1,600.0 - 6,900.0 /uL Micro: None. Radiology: None new. Vascular Studies: None. Sadi Palmer DPM 3:41 PM; 02/12/2023 * Trina Watkins DO - 02/11/2023 6:25 PM PDT [facility]: INPATIENT PROGRESS NOTE Patient Name: Henry Thomas Date of : 1955 Age: 67 y.o. Code Status: Full Code Primary Care Physician: None Selected Pcp Admitting Provider: Dior Coy MD Attending Provider: Trina Watkins DO Admit Date: 02/09/2023 Hospital Day: 2 [facility] ASSESSMENT & PLAN Henry Thomas is a 67 y.o. male with no significant past medical history who was transferred [facility] for surgical intervention of his left foot. 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 ??Active. -X-ray foot negative for osteomyelitis -MRI shows??soft tissue swelling and edema no discreet abcesses, osteoarthritis noted -CPR??wnl -No blood cultures taken on admission -MRSA screen negative -Afebrile, no leukocytosis -No evidence of claudication,??good peripheral pulses -Tdap administered at [facility] -Pain management -Podiatry consulted and feel that this might have been secondary to frostbite -Bedside debridement on 02/10 -Continue Rocephin 2 g daily -Discontinue vancomycin 02/11 ?? Hypertension, present admission. ??Active. -Hypertensive at [facility] at 178/103, not on any home antihypertensives -Lisinopril 10mg daily initiated? Prediabetes, present on admission, active -Hemoglobin A1c 5.7 -Patient counseled on weight loss and decreasing carbs Alcohol dependence, present condition. ??Active. -3 to 4 glasses??of red wine nightly -Has never gone through withdrawal -CIWA protocol in place currently no signs of withdrawal -Daily thiamine and vitamin ?? Chronic problems: -Possible gout, not on any home medications? VTE Prophylaxis:??heparin subcutaneous Tobacco/Marijuana Dependence:??Never smoked Body mass index is 22.45 kg/m??. Disposition: The patient seems to be responding well to IV antibiotics. At this time podiatry feelsthat the patient's ulcer secondary to frostbite. Patient was counseled extensively today about proper footwear changing his socks regularly during the cold winter months while he is out working and keeping his socks dry. Follow-up labs in the morning for any electrolyte derangement. SUBJECTIVE Patient's Update Patient was seen and evaluated bedside. Patient states that his pain is well controlled and has no complaints at this time. Interval Update: No acute overnight events Multidisciplinary Rounds Note: The patient was discussed with the RN on the day of this note : YES, non bedside. OBJECTIVE First recorded vitals: Temp: 36.2 ??C (97.1 ??F) - BP: (!) 186/98 - Heart Rate: 79 - Resp: 18 - SpO2: 97 % Most recent vitals: Temp: 37.3 ??C (99.2 ??F) - BP: (!) 166/85 (RN aware) - Heart Rate: 80 - Resp: 16 - SpO2: 99 % Physical Exam General: AAO ??3, no acute distress HEENT: NCAT, EOMI. Membranes pink and moist without exudate. Neck: Neck supple, No JVD Lungs: CTAB, No wheezing, rales, rhonchi Cardiovascular: +S1/S2, RRR, No murmur auscultated Abdomen: Soft, NT/ND. Bowel sounds present Extremities: No cyanosis/clubbing/edema in the right, left lower extremity bandage wrapped clean dry and intact Neurological: CNII-XII grossly intact Psychiatry: Mood and Affect appropriate Nursing notes and vital signs reviewed Scheduled Hospital Meds: cefTRIAXone, 2 g, intravenous, q24h LILIAN heparin (porcine), 5,000 Units, subcutaneous, q12h LILIAN lisinopriL, 10 mg, oral, Daily vitamin, 1 tablet, oral, Daily thiamine (vitamin B1), 100 mg, intravenous push, Daily Or thiamine, 100 mg, oral, Daily vancomycin, 1,500 mg, intravenous, q12h LABS & DIAGNOSTICS Hematology Results from last 7 days Lab Units 02/11/23 0536 02/10/23 0558 02/09/23 1827 WBC AUTO x10e3/uL 5.0 4.0 4.9 HEMOGLOBIN g/dL 10.2* 10.2* 11.1* HEMATOCRIT % 31.9* 31.6* 34.7* MCV fL 104* 103* 104* PLATELETS AUTO x10e3/uL 185 186 196 Chemistry Results from last 7 days Lab Units 02/11/23 0536 02/10/23 0558 02/09/23 1826 SODIUM mmol/L 136 136 141 POTASSIUM mmol/L 4.3 4.0 4.8 CHLORIDE mmol/L 106 108* 110* CO2 mmol/L 26 26 24 BUN mg/dL 7.9* 9.2 5.1* CREATININE mg/dL 0.59* 0.60* 0.57* GLUCOSE mg/dL 100* 92 70 CALCIUM, SERUM mg/dL 8.7 8.3* 8.4* AST U/L -- -- 36 ALT U/L -- -- 18 BILIRUBIN TOTAL mg/dL -- -- 0.4 ALBUMIN g/dL -- -- 3.4 TOTAL PROTEIN g/dL -- -- 6.1* Estimated Creatinine Clearance: 77.2 mL/min (A) (by C-G formula based on SCr of 0.59 mg/dL (L)). IMAGING Electronically signed by: Trina Watkins DO 02/11/2023 6:25 PM Portions of today's documentation have been created with the assistance of voice recognition software. Therefore, it may contain anomalous punctuation, anomalous independent misrecognitions, word substitutions, insertions or omissions. Occasional wrong-word or phonetically similar substitutions mayalso occur, all due to the inherent limitations of voice recognition software. Attempts to correct the above have been made by Trina Watkins DO but it is recommended that the chart be read carefully to recognize, using context, where the substitutions may have occurred. * Figueroa Robbins MD - 02/10/2023 10:31 AM PDT Images from the original note were not included. [facility]: INPATIENT PROGRESS NOTE Patient Name: Henry Thomas Date of : 1955 Age: 67 y.o. Code Status: Full Code Primary Care Physician: No primary care provider on file. Admitting Provider: Dior Coy MD Attending Provider: Figueroa Robbins MD Admit Date: 02/09/2023 Hospital Day: 1 [facility] ASSESSMENT & PLAN Henry Thomas is a 67 y.o. male Carried forward daily. Multidisciplinary Rounds Note: The patient was discussed with the RN on the day of this note : yes Assessment and PLAN Henry Thomas is a 67 y.o. male with no significant past medical history who was transferred [facility] for surgical intervention of his left foot. ?? Active problems: Chronic necrotic ulcers of the left foot, present on admission. Active. X-ray foot negative for osteomyelitis, MRI shows soft tissue swelling and edema over the dorsal aspect of the midfoot and forefoot with concern for cellulitis, no discrete drainable abscess; osteoarthritic changes throughout the midfoot and forefoot joints suggestive of sesamoid tenderness involving the medial sesamoid of the first metatarsal, extensor tendons and ligaments intact -CPR wnl -Blood culture pending -Afebrile, no leukocytosis -No evidence of claudication, good peripheral pulses -Tdap administered at [facility] -Pain management Podiatry consulted from [facility], recommended transfer to [facility] for debridement and further evaluation; appreciate their recommendations; Dr. Palmer podiatry to see patient today Antibiotics: vancomycin and ceftriaxone D#2 Keep NPO incase procedure ?? Hypertension, present admission. Active. -Hypertensive at [facility] at 178/103, not on any home antihypertensives -Lisinopril 10mg initiated ?? Daily alcohol dependence, present condition. Active. -3 to 4 glasses of red wine nightly -Has never gone through withdrawal -CIWA protocol ?? Chronic problems: -Possible gout, not on any home medications ?? VTE Prophylaxis: heparin subcutaneous Tobacco/Marijuana Dependence: Never smoked Code Status: Full code. ?? Dispo: likely 2-3 days pending improvement in infection. Functional status prior to admission: Independent. Functional expectation at discharge (including NSOC): Independent. How will the patient get home from the hospital?: To be determined Are there any known barriers to discharge on admission?: None SUBJECTIVE No chief complaint on file. Patient's Update Patient was seen and evaluated bedside. Plan of care was discussed with patient and questions were solicited and answered in a satisfactorymanner. Patient states he is feeling okay. No complaints. Podiatry to eval today All nursing notes, labs and pertinent imaging reviewed. No other issues upon chart review. OBJECTIVE First recorded vitals: Temp: 36.2 ??C (97.1 ??F) - BP: (!) 186/98 - Heart Rate: 79 - Resp: 18 - SpO2: 97 % Most recent vitals: Temp: 36.4 ??C (97.6 ??F) - BP: (!) 140/83 - Heart Rate: 72 - Resp: 16 - SpO2: 98 % Physical Exam Constitutional: General: He is not in acute distress. Comfortable. Appearance: He is well-developed. He is not ill-appearing, toxic-appearing or diaphoretic. HENT: Head: Normocephalic and atraumatic. Eyes: General: No scleral icterus. Cardiovascular: Rate and Rhythm: Normal rate and regular rhythm. Pulses: Dorsalis pedis pulses are 1+ on the left side. Heart sounds: No murmur heard. Pulmonary: Effort: Pulmonary effort is normal. No respiratory distress. Breath sounds: Normal breath sounds. No wheezing or rales. Abdominal: General: Bowel sounds are normal. Palpations: Abdomen is soft. Tenderness: There is no abdominal tenderness. There is no guarding. Feet: Right foot: Toenail Condition: Right toenails are abnormally thick and ingrown. Fungal disease present. Left foot: Skin integrity: Skin breakdown, erythema and warmth present. Stable 02/10 Toenail Condition: Left toenails are abnormally thick and ingrown. Fungal disease present. Skin: General: Skin is warm and dry. Findings: No rash. Neurological: Mental Status: He is alert and oriented to person, place, and time. Psychiatric: Behavior: Behavior normal. Thought Content: Thought content normal. ? Scheduled Hospital Meds: cefTRIAXone, 2 g, intravenous, q24h LILIAN heparin (porcine), 5,000 Units, subcutaneous, q12h LILIAN lisinopriL, 10 mg, oral, Daily vitamin, 1 tablet, oral, Daily thiamine (vitamin B1), 100 mg, intravenous push, Daily Or thiamine, 100 mg, oral, Daily vancomycin, 1,500 mg, intravenous, q12h LABS & DIAGNOSTICS Hematology Results from last 7 days Lab Units 02/10/23 0558 02/09/23 1827 WBC AUTO x10e3/uL 4.0 4.9 HEMOGLOBIN g/dL 10.2* 11.1* HEMATOCRIT % 31.6* 34.7* MCV fL 103* 104* PLATELETS AUTO x10e3/uL 186 196 Chemistry Results from last 7 days Lab Units 02/10/23 0558 02/09/23 1826 SODIUM mmol/L 136 141 POTASSIUM mmol/L 4.0 4.8 CHLORIDE mmol/L 108* 110* CO2 mmol/L 26 24 BUN mg/dL 9.2 5.1* CREATININE mg/dL 0.60* 0.57* GLUCOSE mg/dL 92 70 CALCIUM, SERUM mg/dL 8.3* 8.4* AST U/L -- 36 ALT U/L -- 18 BILIRUBIN TOTAL mg/dL -- 0.4 ALBUMIN g/dL -- 3.4 TOTAL PROTEIN g/dL -- 6.1* Estimated Creatinine Clearance: 77.2 mL/min (A) (by C-G formula based on SCr of 0.6 mg/dL (L)). IMAGING Imaging results: No image results found. Medical decision making supporting level of service: F3 Electronically signed by: Figueroa Robbins MD 02/10/2023 10:31 AM Portions of today's documentation have been created with the assistance of voice recognition software. Therefore, it may contain anomalous punctuation, anomalous independent misrecognitions, word substitutions, insertions or omissions. Occasional wrong-word or phonetically similar substitutions mayalso occur, all due to the inherent limitations of voice recognition software. Attempts to correct the above have been made by Figueroa Robbins MD but it is recommended that the chart be read carefully torecognize, using context, where the substitutions may have occurred. * Rudolph Maldonado PharmD - 02/09/2023 6:55 PM PDT Vancomycin Management Per Pharmacy Indication: Osteomyelitis TDM Goal: AUC ? 400 Age: 67 y.o. Weight: waiting on weight 75.1 kg Height: 182.88 cm Relevant Micro: 02/09 respiratory PCR - not collected yet 02/09 MRSA screen - not collected yet Assessment: Henry Thomas is a 67 y.o. male with no significant past medical history who was transferred to [facility] for surgical intervention of his left foot. Plan: Follow along for diagnosis. [facility] ruled out osteomyelitis but also recommends vancomycin & ceftriaxone. Indication is still osteomyelitis until they have a better diagnosis. Pt got 1250 mg vanco @ 1645 when he was still at [facility] - Vd = 52.57, t?? = 6.3 hours based on population estimates. - I will initiate vancomycin with a loading dose of 1250 mg followed by a maintenance dose of 1500 mg q12h which predicts a steady state peak of 35.8, trough of 11.2, and an AUC of 515. Scheduled next dose at 1900 based on T 1/2 of 6.3 hours. Vancomycin Level(s) Due: TBD Dosing Table: Date 02/09 02/10 WBC Not collected yet SCr 0.58 (from [facility]) Vanc Dose 1250 mg @ 1645 1500 mg q12h Vanc Level(s) TBD Nephrotoxic Risk Factors: No risk factors noted. documented in this encounter H&P Notes * Dior Coy MD - 02/09/2023 2:53 PM PDT Images from the original note were not included. [facility]: HISTORY & PHYSICAL Patient Name: Henry Thomas Date of : 1955 Age: 67 y.o. Code Status: Full Code Primary Care Physician: No primary care provider on file. Admitting Provider: Dior Coy MD Attending Provider: Monty Oshea DO Admit Date: 02/09/2023 Date of Service: 02/09/2023 Hospital Day: 0 BMI Body mass index is 22.45 kg/m??. ASSESSMENT & PLAN Henry Thomas is a 67 y.o. male with no significant past medical history who [facility] foot. Active problems: Chronic necrotic ulcers of the left foot, present on admission. Active. -X-ray foot negative for osteomyelitis, MRI shows soft tissue swelling and edema over the dorsal aspect of the midfoot and forefoot with concern for cellulitis, no discrete drainable abscess; osteoarthritic changes throughout the midfoot and forefoot joints suggestive of sesamoid tenderness involving the medial sesamoid of the first metatarsal, extensor tendons and ligaments intact -CPR wnl -Blood culture pending, drawn at [facility] -Afebrile, no leukocytosis -No evidence of claudication, good peripheral pulses -Tdap administered at [facility] -Pain medications -Podiatry consulted from [facility], recommended transfer to [facility] for debridement and further evaluation; appreciate their recommendations; spoke with Dr. Palmer, he will see patient tomorrow -Antibiotics: vancomycin and ceftriaxone Hypertension, present admission. Active. -Hypertensive at [facility] at 178/103, not on any home antihypertensives -Lisinopril 10mg initiated Daily alcohol dependence, present condition. Active. -3 to 4 glasses of red wine nightly -Has never gone through withdrawal -CIWA protocol Chronic problems: -Possible gout, not on any home medications VTE Prophylaxis: heparin subcutaneous Tobacco/Marijuana Dependence: Never smoked Code Status: Full code. Patient Status: Patient's expected length of stay: Greater than 2 midnights. Patient is under Inpatient status due to severity of presenting symptoms, complexity of treatment plan, and risk of adverse event. Functional status prior to admission: Independent. Functional expectation at discharge (including NSOC): Independent. How will the patient get home from the hospital?: To be determined Are there any known barriers to discharge on admission?: None SUBJECTIVE No chief complaint on file. Source of History: The Patient History of Present Illness Henry Thomas is a 67 y.o. male with a past medical history notable for no significant past medical history who was transferred to [facility] for surgical intervention of his left foot. Patient reports that she initially started experiencing pain in his left foot last year and he believed it was gout.He did not seek medical treatment instead he changed his diet by minimizing his beer intake. He also increase his ibuprofen intake at that time to combat what he diagnosed as a gout flare. He did nothave any more episodes until earlier this year in November. Again he tried to minimize his alcohol intake and started taking ibuprofen. However this time he states that his toes got progressively worse and did not improve. He denies any fevers but occasionally will have a chill. He denies any nauseaor vomiting. He has reduced sensation bilateral toes. He denies a history of diabetes or peripheralvascular disease. Patient would like to be full code. He is unable to make his medical decisions and he would like his friend, Kulwinder to be his DPOA. Review of Systems A comprehensive review of systems was conducted and found to be negative, except as above in the History of Present Illness. Allergies No Known Allergies Current Medications Medications Prior to Admission Medication Sig Dispense Refill Last Dose ??? ibuprofen (ADVIL,MOTRIN) 200 mg tablet Take 1 tablet (200 mg total) by mouth every 6 (six) hours as needed for mild pain Scheduled Meds: Continuous Infusions: PRN Meds:. Past Medical History History reviewed. No pertinent past medical history. Past Surgical History No past surgical history on file. Family History Family history is reviewed and is noncontributory. Social History The patient reports that he has never smoked. He has never used smokeless tobacco. He reports current alcohol use of about 14.0 standard drinks per week. Social History Social History Narrative ??? Not on file OBJECTIVE First recorded vitals: Temp: 36.2 ??C (97.1 ??F) - BP: (!) 186/98 - Heart Rate: 79 - Resp: 18 - SpO2: 97 % Most recent vitals: Temp: 36.4 ??C (97.5 ??F) - BP: (!) 165/90 - Heart Rate: 69 - Resp: 16 - SpO2: 96 % Physical Exam Vitals reviewed. Constitutional: General: He is not in acute distress. Appearance: He is well-developed. He is not ill-appearing, toxic-appearing or diaphoretic. HENT: Head: Normocephalic and atraumatic. Eyes: General: No scleral icterus. Cardiovascular: Rate and Rhythm: Normal rate and regular rhythm. Pulses: Dorsalis pedis pulses are 1+ on the left side. Heart sounds: No murmur heard. Pulmonary: Effort: Pulmonary effort is normal. No respiratory distress. Breath sounds: Normal breath sounds. No wheezing or rales. Abdominal: General: Bowel sounds are normal. Palpations: Abdomen is soft. Tenderness: There is no abdominal tenderness. There is no guarding. Feet: Right foot: Toenail Condition: Right toenails are abnormally thick and ingrown. Fungal disease present. Left foot: Skin integrity: Skin breakdown, erythema and warmth present. Toenail Condition: Left toenails are abnormally thick and ingrown. Fungal disease present. Skin: General: Skin is warm and dry. Findings: No rash. Neurological: Mental Status: He is alert and oriented to person, place, and time. Psychiatric: Behavior: Behavior normal. Thought Content: Thought content normal. LABS & DIAGNOSTICS Hematology: Results from last 7 days Lab Units 02/09/23 1827 WBC AUTO x10e3/uL 4.9 HEMOGLOBIN g/dL 11.1* HEMATOCRIT % 34.7* MCV fL 104* PLATELETS AUTO x10e3/uL 196 Chemistries: Results from last 7 days Lab Units 02/09/23 1826 SODIUM mmol/L 141 POTASSIUM mmol/L 4.8 CHLORIDE mmol/L 110* CO2 mmol/L 24 BUN mg/dL 5.1* CREATININE mg/dL 0.57* GLUCOSE mg/dL 70 CALCIUM, SERUM mg/dL 8.4* AST U/L 36 ALT U/L 18 BILIRUBIN TOTAL mg/dL 0.4 ALBUMIN g/dL 3.4 TOTAL PROTEIN g/dL 6.1* Estimated Creatinine Clearance: 77.2 mL/min (A) (by C-G formula based on SCr of 0.57 mg/dL (L)). Covid test: Negative ECG FINDINGS: normal EKG, normal sinus rhythm IMAGING Imaging completed at [facility]: x-ray foot and MRI of the left foot is negative for any osteomyelitis. Electronically signed by: Dior Coy MD 02/09/2023 9:27 PM Portions of today's documentation have been created with the assistance of voice recognition software. Therefore, it may contain anomalous punctuation, anomalous independent misrecognitions, word substitutions, insertions or omissions. Occasional wrong-word or phonetically similar substitutions mayalso occur, all due to the inherent limitations of voice recognition software. Attempts to correct the above have been made by Dior Coy MD but it is recommended that the chart be read carefully to recognize, using context, where the substitutions may have occurred. Associated attestation - Len OsheaorinDO alverto - 02/09/2023 10:46 PM PDT The patient was seen and examined together with Dr Coy on 02/09/2023 and I agree with the history, exam and plan as outlined in the note above. MRI reassuring for no osteomyelitis. Appears he just needs debridement. Podiatry to see the patienttomorrow he is n.p.o. just in case. He does not appear to be in withdrawal, states he has not drankin for some time. Resident has CIWA protocol ordered just in case. Medical decision making supporting level of service: Severity of illness: Acute or chronic illnesses or injuries that pose a threat to life of bodily function 3, Necrotic ulcers toes left foot Discussion of management or test interpretation with external physician, :Consultants : Podiatry EDphysician, Independent review and interpretation of imaging: MR foot, XR foot, Independent review and interpretation of labs: WBC, Hg, Plt, Na, Cl, Cr, BUN, Potassium, Chloride, Mg, and HCO3, High risk medications given: vancomycin, and Review of external prior notes Diagnostic procedures:non cardiovascular imaging studies 1 Management options: Drug therapy requiring intensive monitoring for toxicity (amiodarone, heparin, blood products, IV opiates, vanco, CIWA, TPN) 3 LOS: I3 documented in this encounter Consult Notes * Trinitydebby Khoury, ADAIR - 02/11/2023 3:07 PM PDTAssociated Order(s): IP CONSULT TO NUTRITION SERVICES NUTRITION ASSESSMENT / WOUND CONSULT: ASSESS: Pt is a 67 yo M who was admitted with L toe wounds. He is s/p bedside debridement on 02/10. Per podiatry, no indication for OR at this time. Wound care is following. He is on a general diet with good recorded PO intake so far. Received wound consult. PMHX: None DIET: General; PO 100% x2 meals; NKFA LABS: BUN 7.9, Environmental Scientist 0.59, Glu 100 MEDS: MVI, thiamine GI: No BM yet SKIN: full thickness wounds on L toes s/p debridement -wound care following WEIGHT: 75.1 kg (02/09, bed scale); BMI 22.45 kg/m2; No wt hx in EMR ESTIMATED NEEDS: wound Calories: 5284-0996 kcal/d (30-35 kcal/kg BW) Protein: 90-113 g/d (1.2-1.5 g/kg BW) NUTRITION DIAGNOSIS: (1) Increased nutrient needs related to increased demand for nutrients as evidenced by pt with multiple L foot toe wounds. INTERVENTION: (1) Continue current diet. Will send Ensure Plus HP on breakfast trays for additional calories and protein. (2) Attempted to visit pt this afternoon to discuss Timothy and wound healing, but he was asleep withearplugs. Will follow up on next care date. MONITOR/EVALUATE: Diet tolerance, PO intake, wound, wt, labs, GI status. Follow- up per moderate nutrition risk guidelines. * Sondra Lagunas RN - 02/11/2023 2:14 PM PDTAssociated Order(s): IP CONSULT TO WOUND/OSTOMY CARE Images from the original note were not included. [facility] Inpatient Wound Care Pt Name/Age/: Henry Thomas 67 y.o. 1955 Med. Record #: [id number] Date of Admission: 02/09/2023 Reason for Admission: Necrotic ulcers of left foot S: Initial visit for new inpatient wound consult request r/t left foot toes B: Henry Thomas is a 67 y.o. male patient resting in bed. Patient has no past medical history on file. A: Wound 1-- Location: Multiple toes on left foot Description: Unknown etiology full thickness wounds Dimensions: affected great toe anterior and tip on plantar surface, 3rd and 4th toes, tip of fifth toe Base: red, granulating tissue mixed with dry eschar and adherent nonviable tissue Edges: irregular, attached Drainage: scant sanguinous Odor: none Periwound Skin: pale, nonpitting edema, minor maceration between 3rd and 4th toes Pain: 5/10 Capillary refill-- brisk Photo: Wound Care: Cleansed foot with chlorhexedine and mild soap, rinsed well.Trialled medical honey to wounds but burning sensation was not well tolerated. Placed NS-moist Aquacel Ag with Vaseline gauze over, wrappedin dry gauze and kerlix, VICENTA. Education: Educated patient on wound care performed and products used. Discussed importance of eating high protein diet, monitoring carbohydrates as he is pre-diabetic. Discussed potential healing time and how he could contribute to faster wound healing, including good diet, strict compliance with wound dressing changes, follow up with clinic outpatient. Additional Note: Patient tolerated wound care fairly well and was pleasant, reports appreciating education from all staff so far. He would prefer a wound clinic in [place] if possible for follow up. Recommendations: -See Dressing change orders, Wound Care or Podiatry to perform dressing changes until further notice. If any strike-through is noted, please reinforce with kerlix and VICENTA. -Inpatient wound care to follow up Monday 02/12 -Contact Inpatient Wound Care if wound worsens Thank you for the consult and opportunity to participate in the care of this patient. Electronically signed by: Sondra Lagunas RN,[facility], 02/11/2023 2:14 PM * Sadi Palmer DPM - 02/10/2023 9:32 PM PDTAssociated Order(s): IP CONSULT TO PODIATRY Images from the original note were not included. Foot & Ankle Surgery Consult Note Sadi Palmer DPM DPM Henrydeja Hamston Age/Gender 67 y.o. male Attending Figueroa Robbins MD Hosp Day # 1 PCP None Selected Pcp Assessment: 1. Abraham bite vs. Burn vs. Infected blisters LEFT hallux, 3rd, and 4th toes without evidence of deep soft tissue or bone involvment. Plan: 1. Wounds were evaluated and excisionally debrided at bedside using a 15 blade. Pt tolerated this well, but was painful. Overall I cannot see any deep tissue or bone involvement. XR's and MRI from [facility] were negative for bone involvement. Covered the wounds with betadine soaked gauze, kerlix, and vicenta wrap. 2. Will consult wound RN team to do bandage changes and clean up the foot. 3. No indication for OR at this time. 4. Continue broad spectrum abx until the cellulitic component settles down. 5. Heel touch WB LEFT foot. 6. If wounds stabilize over the next 1-2 days, pt can likely DC to home with self care and follow-up outpt. HPI: Reason for Consult: Wounds Henry Thomas is a 67 y.o. male with no significant prior medical history who was transferred from [facility] due to lack of OR access for concerning wounds on his LEFT foot. Pt states he thinks they've been present for about 2 months. 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 Was ignoring the wounds due to pain and not wanting to come to terms with how the wounds were doing. Finally got bad enough to come to the ED. Presently denies n/v/f/c/d/cp/sob. Medications: Current Facility-Administered Medications: ??? acetaminophen (TYLENOL) tablet 650 mg, 650 mg, oral, q4h PRN, Dior Coy MD, 650 mg at 02/09/23 2346 ??? cefTRIAXone (ROCEPHIN) 2 g in sodium chloride 0.9 % mini-bag plus (NS) 50 mL IVPB, 2 g, intravenous, q24h LILIANDior MD, Stopped at 02/10/23 0848 ??? heparin (porcine) injection 5,000 Units, 5,000 Units, subcutaneous, q12h [facility],5,000 Units at 02/10/23 2019 ??? HYDROcodone-acetaminophen (NORCO) 5-325 mg 1 tablet, 1 tablet, oral, q4h PRN, Dior Coy MD,1 tablet at 02/10/23 2124 ??? Insert peripheral IV, , , Once AND lidocaine (XYLOCAINE) 10 mg/mL (1 %) injection 1 mL, 1 mL, infiltration, Once PRN AND Maintain IV access, , , Until discontinued AND Saline lock IV,, , Once AND sodium chloride 0.9 % flush 10 mL, 10 mL, intravenous, PRN, Dior Coy MD ??? lisinopriL (PRINIVIL) tablet 10 mg, 10 mg, oral, Daily, Doir Cyo MD, 10 mg at 02/10/23 0815 ??? LORazepam (ATIVAN) injection 1-4 mg, 1-4 mg, intravenous, PRN, Dior Coy MD ??? LORazepam (ATIVAN) tablet 1 mg, 1 mg, oral, q6h PRN, Dior Coy MD ??? melatonin tablet 5 mg, 5 mg, oral, Nightly PRN, Dior Coy MD ??? morphine injection 1-2 mg, 1-2 mg, intravenous, q4h PRN, Dior Coy MD, 1 mg at 02/09/232056 ??? naloxone (NARCAN) injection 0.04 mg, 0.04 mg, intravenous, PRN, Dior Coy MD ??? ondansetron ODT (ZOFRAN-ODT) disintegrating tablet 4 mg, 4 mg, oral, q8h PRN, 4 mg at 02/09/232058 OR ondansetron (ZOFRAN) injection 4 mg, 4 mg, intravenous, q8h PRN, Dior Coy MD ??? vitamin oral tablet 1 tablet, 1 tablet, oral, Daily, Dior Coy MD, 1 tablet at 02/10/23 0811 ??? THIAMINE (B-1) injection 100 mg, 100 mg, intravenous push, Daily, 100 mg at 02/10/23 0812 OR thiamine (VITAMIN B 1) 100 mg tablet 100 mg, 100 mg, oral, Daily, Dior Coy MD ??? vancomycin 1.5 gram/300 mL IVPB (premix) 1,500 mg, 1,500 mg, intravenous, q12h, Rudolph Maldonado,BenjaminD, Stopped at 02/10/23 1422 ??? VANCOMYCIN PER PHARMACY 1 each, 1 each, intravenous, Daily PRN, Benjamin BobD Allergies: No Known Allergies PMH: History reviewed. No pertinent past medical history. Past Surgical History: No past surgical history on file. Social History: Currently lives at [facility] alone. Work: Construction Social History Tobacco Use Smoking Status Never Smokeless Tobacco Never Social History Substance and Sexual Activity Alcohol Use Yes ??? Alcohol/week: 14.0 standard drinks ??? Types: 14 Glasses of wine per week Comment: every night Social History Substance and Sexual Activity Drug Use Not on file Family History: No family history on file. Review of Systems: Review of Systems Constitutional: Negative for chills, fatigue and fever. HENT: Negative for hearing loss, nosebleeds, tinnitus and trouble swallowing. Eyes: Negative for visual disturbance. Respiratory: Negative for cough and shortness of breath. Cardiovascular: Negative for chest pain, palpitations and leg swelling. Gastrointestinal: Negative for constipation, diarrhea, nausea and vomiting. Endocrine: Negative for cold intolerance and heat intolerance. Genitourinary: Negative for difficulty urinating and dysuria. Musculoskeletal: Negative for arthralgias, gait problem, joint swelling, myalgias and neck pain. Skin: Negative for rash. Allergic/Immunologic: Negative for environmental allergies. Neurological: Negative for dizziness, tremors, weakness, numbness and headaches. Hematological: Does not bruise/bleed easily. Objective: Vitals: Cardiac Rhythm: Sinus rhythm Resp: 16 Weight: 75.1 kg Tmax:Temp (24hrs), Av.6 ??C (97.8 ??F), Min:36.4 ??C (97.5 ??F), Max:36.8 ??C (98.2 ??F) SBPmax:Systolic (24hrs), Av , Min:140 , Max:156 DBPmax:Diastolic (24hrs), Av, Min:74, Max:85 I&O: Intake/Output Summary (Last 24 hours) at 02/10/2023 2133 Last data filed at 02/10/2023 1852 Gross per 24 hour Intake 400 ml Output 1350 ml Net -950 ml General: AAO x 4 Lower Extremities: Derm: Partial thickness wounds to the dorsal left hallux and hallux tip, dorsal 3rd, and dorsal 4thtoes. Scabbing noted, but fully appearing granular wound beds. No areas that probe, track, or undermine. No ascending lymphangitis or purulence. Cumulative size of the wounds is 2.5cm x 2.2 cm. Vasc: 2/4 DP and 2/4 PT left; CFT <3 to the digits left. Neuro: Gross protective sensation present to the left. MSK: Moderate tenderness to palpation at the wounds LEFT foot. No gross deformity noted. Muscle strength is 5/5 with DF/PF, inversion, and eversion. Ankle joint, subtalar joint, midtarsal joint, tarsometatarsal joint, and metatarsophalangeal joint ROM WNL left. Labs: Recent Results (from the past 24 hour(s)) Hemoglobin A1c Collection Time: 02/10/23 5:58 AM Result Value Ref Range Hemoglobin A1c 5.7 (H) 4.8 - 5.6 % EAG 117 mg/dL Basic metabolic panel Collection Time: 02/10/23 5:58 AM Result Value Ref Range Sodium, Serum/Plasma 136 135 - 145 mmol/L Potassium, Serum/Plasma 4.0 3.5 - 5.2 mmol/L Chloride, Serum/Plasma 108 (H) 98 - 107 mmol/L CO2, Serum/Plasma 26 22 - 30 mmol/L Anion Gap, Serum/Plasma 2 (L) 3 - 11 mmol/L Urea Nitrogen, Serum/Plasma 9.2 8.0 - 27.0 mg/dL Creatinine, Serum/Plasma 0.60 (L) 0.76 - 1.27 mg/dL Glucose, Serum/Plasma 92 65 - 99 mg/dL Calcium, Serum/Plasma 8.3 (L) 8.5 - 10.1 mg/dL eGFR, Serum/Plasma (CKD-EPI) 105 >60 (CKD-EPI) mL/min/1.73 m2 BUN/Creatinine Ratio, Serum/Plasma 15.3 6.0 - 24.0 Complete blood count with diff Collection Time: 02/10/23 5:58 AM Result Value Ref Range WBC Auto 4.0 3.8 - 10.1 x10e3/uL RBC 3.08 (L) 4.40 - 5.80 x10e6/uL Hemoglobin 10.2 (L) 13.8 - 17.2 g/dL Hematocrit 31.6 (L) 41.0 - 50.0 % MCV 103 (H) 81 - 100 fL MCH 33.1 27.0 - 35.0 pg MCHC 32.3 32.0 - 37.0 g/dL RDW 13.6 12.3 - 15.4 % Platelets 186 150 - 400 x10e3/uL MPV 9.5 7.4 - 10.4 fL NRBC % 0 0 /100 WBCs Abs. NRBC 0.0 x10e3/uL % Neutrophils 63 % % Lymphocytes 22 % % Monocytes 12 % % Eosinophils 2 % % Basophils 1 % Abs. Neutrophils 2.5 1.6 - 6.9 x10e3/uL Abs. Lymphocytes 0.9 (L) 1.1 - 4.8 x10e3/uL Abs. Monocytes 0.5 0.0 - 1.0 x10e3/uL Abs. Eosinophils 0.1 0.0 - 0.5 x10e3/uL Abs. Basophils 0.0 0.0 - 0.4 x10e3/uL Abs. Neutrophils (Auto) 2,500.0 1,600.0 - 6,900.0 /uL Micro: None. Radiology: MRI and XR's done at [place] with no bone involvement. Vascular Studies: N/A. Sadi Palmer DPM 9:33 PM; 02/10/2023 Portions of today's documentation have been created with the assistance of voice recognition software. Therefore, it may contain anomalous punctuation, anomalous independent misrecognitions, word substitutions, insertions or omissions. Occasional wrong-word or sound- alike substitutions may also occur, all due to the inherent limitations of voice recognition software. Attempts to correct the above have been made by Walter Cohen DO, but it is recommended that the chart be read carefully to recognize, using context, where the substitutions may have occurred. * Pranav Sales [facility] - 02/10/2023 11:32 AM PDTAssociated Order(s): IP CONSULT TO SOCIAL WORK CASE MANAGEMENT : INITIAL ASSESSMENT / CONSULT Data: Per EMR review, patient is a 67 y.o. male with Payor: / . PCP is No primary care provider on file.. Advance directives are not completed- Information Declined. 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 No emergency contact information on file. In communication with provider, discharge needs include substance use assessment. Social Work consults to coordinate discharge services have been ordered by provider at this time. BOAT DESIGNER met with patient At bedside. Social work role explained, contact information and discharge planning checklist provided. Pt resides in [place] alone in mobile home. Pt does not have a history with home health and/or snf services. Patient is independent at baseline with ADLs, patient does not use home O2, patient does not use any assisted devices to help ambulate. Patient reports no other use of DME at this time. Patient has no history with SNF???s or HH services. Patient reports no history with infusions or dialysis. Patient???s support system include friends. Patient did not report any food insecurity, financial resources strain, intimate partner violence, housing instability or transportation issues within the last 12months. Assessment: alert and oriented x4. Plan: Anticipate patient to discharge home via bus once medically stable, social work will continueto follow for unidentified needs. ORESTES TangARЮЛИЯ 02/10/23 1130 Discharge Planning Is there a Discharge Planning order? Yes Chart Reviewed Yes EHR Review The patient has been identified as high risk of requiring posthospital services, Case Management will continue to follow. Source of Information Patient Initial DC Planning Assessment Yes Lives with Alone Support Systems Friends/neighbors Level of [place] Independent in all regards Assistance Needed None Living Arrangements Private residence Home Layout One level Home Care Services No Patient expects to be discharged to: HOME Has a discharge transport plan been identified? Yes Who will transport you at time of discharge? bus Barriers to Discharge No barriers Insurance Coverage Prescription Drug Coverage Patient has prescription drug coverage Are you currenty receiving any VA benefits? No Do you currenty have Intermediate Care insurance? No Anticipated Discharge Needs Anticipated Discharge Needs None needed Anticipated Discharge Destination Home alone Equipment (DME) Recommendations None needed Who can help/be your primary caregiver at discharge? None needed Discharge Plan Complete No CASE MANAGEMENT ALCOHOL AND OTHER DRUGS SCREENING Date: 02/10/2023 CAGE & CAGE - AID Questions: 1. Have you ever felt you should Cut down on your drinking or drug use? Yes 2. Have people Annoyed you by criticizing your drinking or drug use? No 3. Have you ever felt bad or Guilty about your drinking or drug use? No 4. Have you ever had a drink or used drugs first thing in the morning to steady your nerves or get rid of a hangover? No Screen is positive if a positive response to one or more questions from CAGE and/or consumption: Men: >14 drinks/week or >4 drinks/occasion Yes Over 65 years old: >7 drinks/week or >3 drinks/occasion Yes History of Use/Treatment/Family History: Patient Current Substance Use: Red wine Patient Historical Substance Use: None reported when asked, pt reports only current use is red wine. History of Treatment: None reported when asked. Family Use History: None reported when asked. Mental Health Treatment History: No previous treatment history Impact(s) of use: None reported. Patient is in the Addiction stage of addiction. Patient is in the contemplation (getting ready) stage of change. Additional Information: Pt reports he doesn't really believe he has an issue with alcohol and addedthat he plans to cut his use but does not plan to quite at this time. Pt reports he only drinks leeroy and does not use any other substance. Pt reports he drinks 2-3 glasses of red wine daily in the evenings, last use was this past Wednesday evening when he gathered with his friends. Pt reports he does not withdraw. Intervention Plan: Patient refused recovery planning Date: 02/10/2023 Time: 11:35 AM Home Health Physical Therapist/RN CM: DEJAN Tang documented in this encounter Nursing Notes * Kai Ng RN - 02/13/2023 2:40 AM PDT Identify possible barriers to meeting goals/advancing plan of care: none End of Shift/ Care Plan Summary: A/o x 4 and able to verbalize his needs RA, no tele IV SL Pain managed with PRN [place], expressed concern about managing pain once discharged Dsg. C/d/i No BM for more than 3 days, no bowel meds available, gave prune juice, pt. Not very receptive to trying bowel medications, educated on opiate side effects of constipation. Hourly rounding completed in coordination with staff Problem: Pain - Adult Goal: Verbalizes/displays adequate comfort level or baseline comfort level Outcome: Progressing Problem: Safety Adult - Fall Goal: Free from fall injury Outcome: Progressing Problem: Discharge Planning Goal: Discharge to home or other facility with appropriate resources Outcome: Progressing * Emily Dean RN - 02/12/2023 7:14 PM PDT Identify possible barriers to meeting goals/advancing plan of care: None End of Shift/ Care Plan Summary: Assumed care of patient at 0700. Patient A&O x 5. Independent in room. 97% RA. Complained of pain 4-8/10 - improved with medication. Dressing change completed by wound RN. Ongoing safety rounds. Problem: Pain - Adult Goal: Verbalizes/displays adequate comfort level or baseline comfort level 02/12/20231913 by Emily Dean Outcome: Progressing 02/12/2023 183 by Emily Dean Outcome: Progressing Problem: Safety Adult - Fall Goal: Free from fall injury 02/12/20231913 by Emily Dean Outcome: Progressing 02/12/20231834 by Emily Dean Outcome: Progressing Problem: Discharge Planning Goal: Discharge to home or other facility with appropriate resources 02/12/20231913 by Emily Dean Outcome: Progressing 02/12/20231834 by Emily Dean Outcome: Progressing Problem: Neurosensory - Adult Goal: Absence of seizures 02/12/20231913 by Emily Dean Outcome: Progressing 02/12/20231834 by Emily Dean Outcome: Progressing Problem: Gastrointestinal - Adult Goal: Minimal or absence of nausea and vomiting Outcome: Progressing * Kai Ng RN - 02/12/2023 3:50 AM PDT Identify possible barriers to meeting goals/advancing plan of care: wound care, iv abx End of Shift/ Care Plan Summary: A/o x 4 and able to verbalize his needs Prn pain medication effective IV TKO RA, No tele No overnight incidents/events Hourly rounding completed in coordination with staff Problem: Pain - Adult Goal: Verbalizes/displays adequate comfort level or baseline comfort level Outcome: Progressing Problem: Safety Adult - Fall Goal: Free from fall injury Outcome: Progressing Problem: Skin/Tissue Integrity - Adult Goal: Incisions, wounds, or drain sites healing without S/S of infection Outcome: Progressing * Tierra Villegas RN - 02/11/2023 7:47 PM PDT Identify possible barriers to meeting goals/advancing plan of care: IV Abx, Wound care End of Shift/ Care Plan Summary: A&Ox4, VSS, pain well controlled, independent in his room, uses urinal at bedside, wound nurse at bedside, dressing changed tolerated, IV antibiotic tolerated, denies nausea. Safety check completed, all needs met. Problem: Pain - Adult Goal: Verbalizes/displays adequate comfort level or baseline comfort level Outcome: Progressing Problem: Skin/Tissue Integrity - Adult Goal: Incisions, wounds, or drain sites healing without S/S of infection Outcome: Progressing * Tierra Villegas RN - 02/10/2023 7:30 PM PDT Identify possible barriers to meeting goals/advancing plan of care: Pain management, Podiatry consult, IV Abx End of Shift/ Care Plan Summary: A&Ox4, pain manageable using [place] with good relief, IV antibiotic tolerated without adverse side effect, pt reported PIV got pulled at end of shift. Dr. Palmer at bedside debrided wound, wrappedwith vicenta bandage. Uses urinal at bedside, safety rounds completed, all needs met. Problem: Pain - Adult Goal: Verbalizes/displays adequate comfort level or baseline comfort level Outcome: Progressing Problem: Safety Adult - Fall Goal: Free from fall injury Outcome: Progressing * Kai Ng RN - 02/10/2023 4:15 AM PDT Identify possible barriers to meeting goals/advancing plan of care: podiatry consult with possible debridement. End of Shift/ Care Plan Summary: A/o x 4 and able to verbalize his needs RA, Tele SR Pain in BLE, left more than the right, intermittent prn hydro not effective new order morphine available 1 mg adequate in pain management. NPO since MN No overnight events/incidents Hourly rounding completed in coordination with staff Problem: Safety Adult - Fall Goal: Free from fall injury Outcome: Progressing Problem: Musculoskeletal - Adult Goal: Return ADL status to a safe level of function Outcome: Progressing * Edwige Pedroza RN - 02/09/2023 7:37 PM PDT Identify possible barriers to meeting goals/advancing plan of care: medical stability End of Shift/ Care Plan Summary: Assumed care of pt at 1740, safety checks performed during handoff. Pt is alert and oriented x 4. Pt stands up and turn on bed independently. Pt is on RA, complains of ongoing left foot pain medicated appropriately and used nonpharmacologic methods to relieve, denies n/v, and is compliant with care plan. COVID test and MRSA were collected. Patient will be on NPO @midnight. No other changes in plan of care. 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, left ([facility]) Ordered: 02/12/2023 documented as of this encounter Procedures Procedure Name Priority Date/Time Associated Diagnosis Comments DISCHARGE PATIENT Routine 02/13/2023 10: 13 AM PDT EXTRA TUBES Routine 02/13/2023 7:17 AM PDT LAVENDER TOP Routine 02/13/2023 7:17 AM PDT BASIC METABOLIC PANEL Routine 02/13/2023 7:17 AM PDT POCT GLUCOSE Routine 02/12/2023 5:19 PM PDT COMPLETE BLOOD COUNT WITH DIFF RESULT Routine 02/12/2023 6:15 AM PDT COMPLETE BLOOD COUNT WITH DIFF Routine 02/12/2023 6:15 AM PDT MAGNESIUM Routine 02/12/2023 6:15 AM PDT COMPREHENSIVE METABOLIC PANEL Routine 02/12/2023 6:15 AM PDT COMPLETE BLOOD COUNT WITH DIFF RESULT Routine 02/11/2023 5:36 AM PDT COMPLETE BLOOD COUNT WITH DIFF Routine 02/11/2023 5:36 AM PDT BASIC METABOLIC PANEL Routine 02/11/2023 5:36 AM PDT COMPLETE BLOOD COUNT WITH DIFF RESULT Routine 02/10/2023 5:58 AM PDT COMPLETE BLOOD COUNT WITH DIFF Routine 02/10/2023 5:58 AM PDT HEMOGLOBIN A1C Routine 02/10/2023 5:58 AM PDT BASIC METABOLIC PANEL Routine 02/10/2023 5:58 AM PDT ECG 12-LEAD STAT 02/09/2023 9:21 PM PDT RESPIRATORY PCR MINI-PANEL (SARS-COV-2, FLU A, FLU B, RSV), REFLEX 72HR IF SARS-COV-2 NEG Routine 02/09/2023 6:53 PM PDT MRSA SCREEN Routine 02/09/2023 6:53 PM PDT COMPLETE BLOOD COUNT WITH DIFF RESULT Routine 02/09/2023 6:27 PM PDT SEDIMENTATION RATE Routine 02/09/2023 6: 27 PM PDT COMPLETE BLOOD COUNT WITH DIFF Routine 02/09/2023 6:27 PM PDT C-REACTIVE PROTEIN Routine 02/09/2023 6: 26 PM PDT URIC ACID Add-On 02/09/2023 6:26 PM PDT COMPREHENSIVE METABOLIC PANEL Routine 02/09/2023 6:26 PM PDT TELEMETRY EXTERNAL RESULTS 02/09/2023 documented in this encounter Results * Hold Lav Top - EDTA (02/13/2023 7:17 AM PDT) Pathologist [facility] Extra Tube Hold for add-ons. 02/13/2023 10:01 AM PDT [facility] Comment:Auto resulted. Blood Venous blood / Unknown 02/13/2023 7:17 AM PDT 02/13/2023 9:44 AM PDT Trina Watkins DO LAB BLOOD ORDERABLES [facility] [address] [place] [address], * (ABNORMAL) Basic metabolic panel (02/13/2023 7:17 AM PDT) [facility] Sodium, Serum/Plasma 139 135 - 145 mmol/L LAB CHEMISTRY METHOD 02/13/2023 10:36 AM [facility] Potassium, Serum/Plasma 3.8 3.5 - 5.2 mmol/L LAB CHEMISTRY METHOD 02/13/2023 10:36 AM [facility] Chloride, Serum/Plasma 107 98 - 107 mmol/L LAB CHEMISTRY METHOD 02/13/2023 10:36 AM [facility] CO2, Serum/Plasma 27 22 - 30 mmol/L LAB CHEMISTRY METHOD 02/13/2023 10:36 AM [facility] Anion Gap, Serum/Plasma 5 3 - 11 mmol/L 02/13/2023 10:36 AM [facility] Urea Nitrogen, Serum/Plasma 12.7 8.0 - 27.0 mg/dL LAB CHEMISTRY METHOD 02/13/2023 10:36 AM [facility] Creatinine, Serum/Plasma 0.63(L) 0.76 - 1.27 mg/dL LAB CHEMISTRY METHOD 02/13/2023 10:36 AM [facility] Glucose, Serum/Plasma 88 65 - 99 mg/dL LAB CHEMISTRY METHOD 02/13/2023 10:36 AM PDT [facility] Calcium, Serum/Plasma 9.0 8.5 - 10.1 mg/dL LAB CHEMISTRY METHOD 02/13/2023 10:36 AM PDT [facility] eGFR, Serum/Plasma (CKD-EPI) 103 >60 (CKD-EPI) mL/min/1.7 3 m2 02/13/2023 10:36 AM PDT [facility] BUN/Creatinine Ratio, Serum/Plasma 20.2 6.0 - 24.0 02/13/2023 10:36 AM PDT [facility] Blood Venous blood / Unknown Venipuncture / Unknown 02/13/2023 7:17 AM PDT 02/13/2023 9:17 AM PDT Monty Oshea DO LAB BLOOD ORDERAB LES Performing Organization Address City/[facility]/ZIP Co de Phone Number [facility] [address] [place] [address], [place] [phone] * (ABNORMAL) POCT glucose (02/12/2023 5:19 PM PDT) Pathologist [facility] POCT Glucose, Blood 103(H) 65 - 99 mg/dL 02/12/2023 5:19 PM PDT [facility] POCT (CLIA [id number]) Blood Capillary blood / Unknown 02/12/2023 5:19 PM PDT 02/12/2023 5:19 PM PDT Trina Watkins DO LAB POCT ORDERABLES - DEVICE Performing Organization Address City/[facility]/ZIP Co de Phone Number [facility] POCT (CLIA [id number]) [address] [email or web address] [address], [place] [phone] * (ABNORMAL) Complete blood count with diff (02/12/2023 6:15 AM PDT) Pathologist [facility] WBC Auto 4.3 3.8 - 10.1 x10e3/uL 02/12/2023 6:35 AM PDT [facility] RBC 3.23(L) 4.40 - 5.80 x10e6/uL 02/12/2023 6:35 AM PDT [facility] Hemoglobin 10.7(L) 13.8 - 17.2 g/dL 02/12/2023 6:35 AM [facility] Hematocrit 32.0(L) 41.0 - 50.0 % 02/12/2023 6:35 AM [facility] MCV 99 81 - 100 fL 02/12/2023 6:35 AM [facility] MCH 33.1 27.0 - 35.0 pg 02/12/2023 6:35 AM [facility] MCHC 33.4 32.0 - 37.0 g/dL 02/12/2023 6:35 AM [facility] RDW 13.7 12.3 - 15.4 % 02/12/2023 6:35 AM [facility] Platelets 176 150 - 400 x10e3/uL 02/12/2023 6:35 AM [facility] MPV 9.5 7.4 - 10.4 fL 02/12/2023 6:35 AM [facility] NRBC % 0 0 /100 WBCs 02/12/2023 6:35 AM [facility] Abs. NRBC 0.0 x10e3/uL 02/12/2023 6:35 AM [facility] % Neutrophils 65 % 02/12/2023 6:35 AM [facility] % Lymphocytes 22 % 02/12/2023 6:35 AM [facility] % Monocytes 10 % 02/12/2023 6:35 AM [facility] % Eosinophils 2 % 02/12/2023 6:35 AM [facility] % Basophils 1 % 02/12/2023 6:35 AM [facility] Abs. Neutrophils 2.8 1.6 - 6.9 x10e3/uL 02/12/2023 6:35 AM [facility] Abs. Lymphocytes 0.9(L) 1.1 - 4.8 x10e3/uL 02/12/2023 6:35 AM PDT [facility] Abs. Monocytes 0.4 0.0 - 1.0 x10e3/uL 02/12/2023 6:35 AM PDT [facility] Abs. Eosinophils 0.1 0.0 - 0.5 x10e3/uL 02/12/2023 6:35 AM PDT [facility] Abs. Basophils 0.0 0.0 - 0.4 x10e3/uL 02/12/2023 6:35 AM PDT [facility] Abs. Neutrophils (Auto) 2,800.0 1,600.0 - 6,900.0 /uL 02/12/2023 6:35 AM PDT [facility] Blood Venous blood / Unknown Venipuncture / Unknown 02/12/2023 6:15 AM PDT 02/12/2023 6:16 AM PDT [facility] LAB BLOOD ORDERABLES Performing Organization Address City/[facility]/ZIP Co de Phone Number [facility] [address] [place] [address], * Magnesium (02/12/2023 6:15 AM PDT) Pathologist [facility] Magnesium, Serum/Plasma 1.8 1.6 - 2.4 mg/dL LAB CHEMISTRY METHOD 02/12/2023 6:50 AM [facility] Blood Venous blood / Unknown Venipuncture / Unknown 02/12/2023 6:15 AM PDT 02/12/2023 6:16 AM PDT [facility] LAB BLOOD ORDERABLES Performing Organization Address City/[facility]/ZIP Co de Phone Number [facility] [address] [place] [address], * (ABNORMAL) Comprehensive Metabolic Panel (02/12/2023 6:15 AM PDT) Sodium, Serum/Plasma 138 135 - 145 mmol/L LAB CHEMISTRY METHOD 02/12/2023 6:50 AM PDT [facility] Potassium, Serum/Plasma 3.9 3.5 - 5.2 mmol/L LAB CHEMISTRY METHOD 02/12/2023 6:50 AM [facility] Chloride, Serum/Plasma 108(H) 98 - 107 mmol/L LAB CHEMISTRY METHOD 02/12/2023 6:50 AM [facility] CO2, Serum/Plasma 27 22 - 30 mmol/L LAB CHEMISTRY METHOD 02/12/2023 6:50 AM [facility] Anion Gap, Serum/Plasma 3 3 - 11 mmol/L 02/12/2023 6:50 AM [facility] Urea Nitrogen, Serum/Plasma 6.6(L) 8.0 - 27.0 mg/dL LAB CHEMISTRY METHOD 02/12/2023 6:50 AM [facility] Creatinine, Serum/Plasma 0.56(L) 0.76 - 1.27 mg/dL LAB CHEMISTRY METHOD 02/12/2023 6:50 AM [facility] Glucose, Serum/Plasma 85 65 - 99 mg/dL LAB CHEMISTRY METHOD 02/12/2023 6:50 AM [facility] Calcium, Serum/Plasma 8.5 8.5 - 10.1 mg/dL LAB CHEMISTRY METHOD 02/12/2023 6:50 AM [facility] AST, Serum/Plasma 19 17 - 59 U/L LAB CHEMISTRY METHOD 02/12/2023 6:50 AM [facility] ALT, Serum/Plasma 14 <50 U/L LAB CHEMISTRY METHOD 02/12/2023 6:50 AM [facility] Alkaline Phosphatase, Serum/Plasma 47 25 - 160 U/L LAB CHEMISTRY METHOD 02/12/2023 6:50 AM [facility] Total Protein, Serum/Plasma 5.2(L) 6.3 - 8.2 g/dL LAB CHEMISTRY METHOD 02/12/2023 6:50 AM [facility] eGFR, Serum/Plasma (CKD-EPI) 108 >60 (CKD-EPI) mL/min/1. 73 m2 02/12/2023 6:50 AM [facility] Albumin, Serum/Plasma 2.8(L) 3.4 - 5.0 g/dL LAB CHEMISTRY METHOD 02/12/2023 6:50 AM [facility] Comment:Albumin concentratio ns vary with posture. Results from an upright posture may be approximately 0.3 g/dL higher than those from a recumbent posture. Bilirubin, Total, Serum/Plasma 0.3 0.2 - 1.3 mg/dL LAB CHEMISTRY METHOD 02/12/2023 6:50 AM [facility] BUN/Creatinine Ratio, Serum/Plasma 11.8 6.0 - 24.0 02/12/2023 6:50 AM [facility] Blood Venous blood / Unknown Venipuncture / Unknown 02/12/2023 6:15 AM PDT 02/12/2023 6:16 AM PDT Trina Watkins DO LAB BLOOD ORDERABLES [facility] [address] [place] [address], * (ABNORMAL) Complete blood count with diff (02/11/2023 5:36 AM PDT) WBC Auto 5.0 3.8 - 10.1 x10e3/uL 02/11/2023 8:11 AM [facility] RBC 3.06(L) 4.40 - 5.80 x10e6/uL 02/11/2023 8:11 AM [facility] Hemoglobin 10.2(L) 13.8 - 17.2 g/dL 02/11/2023 8:11 AM [facility] Hematocrit 31.9(L) 41.0 - 50.0 % 02/11/2023 8:11 AM [facility] MCV 104(H) 81 - 100 fL 02/11/2023 8:11 AM [facility] MCH 33.3 27.0 - 35.0 pg 02/11/2023 8:11 AM [facility] MCHC 32.0 32.0 - 37.0 g/dL 02/11/2023 8:11 AM [facility] RDW 13.8 12.3 - 15.4 % 02/11/2023 8:11 AM [facility] Platelets 185 150 - 400 x10e3/uL 02/11/2023 8:11 AM PDT [facility] MPV 9.4 7.4 - 10.4 fL 02/11/2023 8:11 AM PDT [facility] NRBC % 0 0 /100 WBCs 02/11/2023 8:11 AM PDT [facility] Abs. NRBC 0.0 x10e3/uL 02/11/2023 8:11 AM PDT [facility] % Neutrophils 67 % 02/11/2023 8:11 AM PDT [facility] % Lymphocytes 20 % 02/11/2023 8:11 AM PDT [facility] % Monocytes 10 % 02/11/2023 8:11 AM PDT [facility] % Eosinophils 2 % 02/11/2023 8:11 AM PDT [facility] % Basophils 1 % 02/11/2023 8:11 AM [facility] Abs. Neutrophils 3.4 1.6 - 6.9 x10e3/uL 02/11/2023 8:11 AM [facility] Abs. Lymphocytes 1.0(L) 1.1 - 4.8 x10e3/uL 02/11/2023 8:11 AM PDT [facility] Abs. Monocytes 0.5 0.0 - 1.0 x10e3/uL 02/11/2023 8:11 AM PDT [facility] Abs. Eosinophils 0.1 0.0 - 0.5 x10e3/uL 02/11/2023 8:11 AM [facility] Abs. Basophils 0.0 0.0 - 0.4 x10e3/uL 02/11/2023 8:11 AM [facility] Abs. Neutrophils (Auto) 3,400.0 1,600.0 - 6,900.0 /uL 02/11/2023 8:11 AM [facility] Blood Venous blood / Unknown Venipuncture / Unknown 02/11/2023 5:36 AM PDT 02/11/2023 6:26 AM PDT Monty Oshea DO LAB BLOOD ORDERAB LES [facility] [address] [place] [address], * (ABNORMAL) Basic metabolic panel (02/11/2023 5:36 AM PDT) Sodium, Serum/Plasma 136 135 - 145 mmol/L LAB CHEMISTRY METHOD 02/11/2023 6:54 AM [facility] Potassium, Serum/Plasma 4.3 3.5 - 5.2 mmol/L LAB CHEMISTRY METHOD 02/11/2023 6:54 AM [facility] Chloride, Serum/Plasma 106 98 - 107 mmol/L LAB CHEMISTRY METHOD 02/11/2023 6:54 AM [facility] CO2, Serum/Plasma 26 22 - 30 mmol/L LAB CHEMISTRY METHOD 02/11/2023 6:54 AM [facility] Anion Gap, Serum/Plasma 4 3 - 11 mmol/L 02/11/2023 6:54 AM [facility] Urea Nitrogen, Serum/Plasma 7.9(L) 8.0 - 27.0 mg/dL LAB CHEMISTRY METHOD 02/11/2023 6:54 AM [facility] Creatinine, Serum/Plasma 0.59(L) 0.76 - 1.27 mg/dL LAB CHEMISTRY METHOD 02/11/2023 6:54 AM [facility] Glucose, Serum/Plasma 100(H) 65 - 99 mg/dL LAB CHEMISTRY METHOD 02/11/2023 6:54 AM [facility] Calcium, Serum/Plasma 8.7 8.5 - 10.1 mg/dL LAB CHEMISTRY METHOD 02/11/2023 6:54 AM [facility] eGFR, Serum/Plasma (CKD-EPI) 105 >60 (CKD-EPI) mL/min/1.7 3 m2 02/11/2023 6:54 AM [facility] BUN/Creatinine Ratio, Serum/Plasma 13.4 6.0 - 24.0 02/11/2023 6:54 AM [facility] Blood Venous blood / Unknown Venipuncture / Unknown 02/11/2023 5:36 AM PDT 02/11/2023 6:28 AM PDT Monty Oshea DO LAB BLOOD ORDERAB LES [facility] [address] [place] [address], * (ABNORMAL) Complete blood count with diff (02/10/2023 5:58 AM PDT) WBC Auto 4.0 3.8 - 10.1 x10e3/uL 02/10/2023 7:40 AM PDT [facility] RBC 3.08(L) 4.40 - 5.80 x10e6/uL 02/10/2023 7:40 AM [facility] Hemoglobin 10.2(L) 13.8 - 17.2 g/dL 02/10/2023 7:40 AM [facility] Hematocrit 31.6(L) 41.0 - 50.0 % 02/10/2023 7:40 AM [facility] MCV 103(H) 81 - 100 fL 02/10/2023 7:40 AM [facility] MCH 33.1 27.0 - 35.0 pg 02/10/2023 7:40 AM [facility] MCHC 32.3 32.0 - 37.0 g/dL 02/10/2023 7:40 AM [facility] RDW 13.6 12.3 - 15.4 % 02/10/2023 7:40 AM [facility] Platelets 186 150 - 400 x10e3/uL 02/10/2023 7:40 AM [facility] MPV 9.5 7.4 - 10.4 fL 02/10/2023 7:40 AM [facility] NRBC % 0 0 /100 WBCs 02/10/2023 7:40 AM PDT [facility] Abs. NRBC 0.0 x10e3/uL 02/10/2023 7:40 AM [facility] % Neutrophils 63 % 02/10/2023 7:40 AM PDT [facility] % Lymphocytes 22 % 02/10/2023 7:40 AM PDT [facility] % Monocytes 12 % 02/10/2023 7:40 AM PDT [facility] % Eosinophils 2 % 02/10/2023 7:40 AM PDT [facility] % Basophils 1 % 02/10/2023 7:40 AM PDT [facility] Abs. Neutrophils 2.5 1.6 - 6.9 x10e3/uL 02/10/2023 7:40 AM PDT [facility] Abs. Lymphocytes 0.9(L) 1.1 - 4.8 x10e3/uL 02/10/2023 7:40 AM PDT [facility] Abs. Monocytes 0.5 0.0 - 1.0 x10e3/uL 02/10/2023 7:40 AM PDT [facility] Abs. Eosinophils 0.1 0.0 - 0.5 x10e3/uL 02/10/2023 7:40 AM PDT [facility] Abs. Basophils 0.0 0.0 - 0.4 x10e3/uL 02/10/2023 7:40 AM [facility] Abs. Neutrophils (Auto) 2,500.0 1,600.0 - 6,900.0 /uL 02/10/2023 7:40 AM [facility] Blood Venous blood / Unknown Venipuncture / Unknown 02/10/2023 5:58 AM PDT 02/10/2023 7:13 AM PDT Monty Oshea DO LAB BLOOD ORDERAB LES [facility] [address] [place] [address], * (ABNORMAL) Basic metabolic panel (02/10/2023 5:58 AM PDT) Sodium, Serum/Plasma 136 135 - 145 mmol/L LAB CHEMISTRY METHOD 02/10/2023 8:22 AM PDT [facility] Potassium, Serum/Plasma 4.0 3.5 - 5.2 mmol/L LAB CHEMISTRY METHOD 02/10/2023 8:22 AM PDT [facility] Chloride, Serum/Plasma 108(H) 98 - 107 mmol/L LAB CHEMISTRY METHOD 02/10/2023 8:22 AM PDT [facility] CO2, Serum/Plasma 26 22 - 30 mmol/L LAB CHEMISTRY METHOD 02/10/2023 8:22 AM PDT [facility] Anion Gap, Serum/Plasma 2(L) 3 - 11 mmol/L 02/10/2023 8:22 AM [facility] Urea Nitrogen, Serum/Plasma 9.2 8.0 - 27.0 mg/dL LAB CHEMISTRY METHOD 02/10/2023 8:22 AM [facility] Creatinine, Serum/Plasma 0.60(L) 0.76 - 1.27 mg/dL LAB CHEMISTRY METHOD 02/10/2023 8:22 AM [facility] Glucose, Serum/Plasma 92 65 - 99 mg/dL LAB CHEMISTRY METHOD 02/10/2023 8:22 AM [facility] Calcium, Serum/Plasma 8.3(L) 8.5 - 10.1 mg/dL LAB CHEMISTRY METHOD 02/10/2023 8:22 AM [facility] eGFR, Serum/Plasma (CKD-EPI) 105 >60 (CKD-EPI) mL/min/1.7 3 m2 02/10/2023 8:22 AM [facility] BUN/Creatinine Ratio, Serum/Plasma 15.3 6.0 - 24.0 02/10/2023 8:22 AM [facility] Blood Venous blood / Unknown Venipuncture / Unknown 02/10/2023 5:58 AM PDT 02/10/2023 7:17 AM PDT Monty Oshea DO LAB BLOOD ORDERAB LES [facility] [address] [place] [address], * (ABNORMAL) Hemoglobin A1c (02/10/2023 5:58 AM PDT) Hemoglobin A1c 5.7(H) 4.8 - 5.6 % 02/10/2023 9:06 PM PDT [facility] Comment: ? Prediabetes: 5.7 - 6.4 ? Diabetes: >6.4 ? Glycemic control for adults with diabetes: <7.0 EAG 117 mg/dL 02/10/2023 9:06 PM PDT [facility] Blood Venous blood / Unknown Venipuncture / Unknown 02/10/2023 5:58 AM PDT 02/10/2023 7:12 AM PDT Narrative [facility] - 02/10/2023 9:06 PM PDT Performed at: ??01 - [facility] [address] ??[place] [address], [place], [place] ??[id number] Buffer Machine: Walter Wesley MD, Phone: ??[phone] Monty Oshea DO LAB BLOOD ORDERAB LES Performing Organization Address City/[facility]/ZIP Co de Phone Number [facility] [address] [address], * ECG 12 lead (02/09/2023 9:21 PM PDT) HR 67 bpm [facility] RR 896 ms [facility] ME 214 ms [facility] QRSD 82 ms [facility] QT 389 ms [facility] QTc 411 ms [facility] QRS -10 deg [facility] T -8 deg [facility] Impression - ABNORMAL ECG - [facility] Impression Sinus rhythm [facility] Impression Borderline prolonged ME interval [facility] Impression Cannot exclude inferior infarct [facility]G Impression No previous ECG available for comparison [facility] 02/09/2023 9:21 PM PDT Monty Oshea DO ECG ORDERABLES Performing Organization Address City/[facility] Co de Phone Number [facility] * MRSA Screen (02/09/2023 6:53 PM PDT) MRSA, ESTER MRSA Not Detected MRSA Not Detected LAB MOLECULAR DIAGNOSTICS METHOD 02/22/2023 8:53 PM PDT [facility] Sinus Both anterior nares / Unknown Non-blood Collection / Unknown 02/09/2023 6:53 PM PDT 02/10/2023 8:38 AM PDT Monty Oshea DO LAB MICROBIOLOGY - GENERAL ORDERABLES [facility] [address] [place] [address], * Respiratory PCR Mini-Panel, Reflex 72H SARS-COV-2 if Neg (02/09/2023 6:53 PM PDT) SARS-CoV-2 (COVID-19) Qual PCR SARS-CoV-2 NEGATIVE Negative LAB MOLECULAR DIAGNOSTICS METHOD 02/10/2023 6:41 AM PDT [facility] Comment:The SARS-Cov-2 targe t nucleic acids are not detected. SARS-CoV-2 NEGATIVE results do not preclude SARS-Cov-2 infection and should not be used as the sole basis for treatment or other patient management decisions. SARS-CoV-2 NEGATIVE results must be combined with clinical observations, patient history, and epidemiological information. Influenza A PCR Not Detected Not Detected LAB MOLECULAR DIAGNOSTICS METHOD 02/10/2023 6:41 AM PDT [facility] Comment:The Influenza A targ et nucleic acids are not detected. Not Detected results do not preclude Influenza A infection and should not be used as the sole basis for treatment or other patient management decisions. Not Detected results must be combined with clinical observations, patient history, and epidemiological information Influenza B PCR Not Detected Not Detected LAB MOLECULAR DIAGNOSTICS METHOD 02/10/2023 6:41 AM PDT [facility] Comment:The Influenza B targ et nucleic acids are not detected. Not Detected results do not preclude Influenza B infection and should not be used as the sole basis for treatment or other patient management decisions. Not Detected results must be combined with clinical observations, patient history, and epidemiological information Respiratory Syncytial Virus PCR Not Detected Not Detected LAB MOLECULAR DIAGNOSTICS METHOD 02/10/2023 6:41 AM PDT [facility] Comment:The RSV target nucle ic acids are not detected. Not Detected results do not preclude RSV infection and should not be used as the sole basis for treatment or other patient management decisions. Not Detected results must be combined with clinical observations, patient history, and epidemiological information. Sinus Nasopharyngeal structure / Unknown Non-blood Collection / Unknown 02/09/2023 6:53 PM PDT 02/09/2023 7:34 PM PDT Lenabhinav Dayo DO LAB MICROBIOLOGY - GENERAL ORDERABLES [facility] [address] [place] [address], * (ABNORMAL) Complete blood count with diff (02/09/2023 6:27 PM PDT) WBC Auto 4.9 3.8 - 10.1 x10e3/uL 02/09/2023 7:38 PM PDT [facility] RBC 3.34(L) 4.40 - 5.80 x10e6/uL 02/09/2023 7:38 PM PDT [facility] Hemoglobin 11.1(L) 13.8 - 17.2 g/dL 02/09/2023 7:38 PM PDT [facility] Hematocrit 34.7(L) 41.0 - 50.0 % 02/09/2023 7:38 PM [facility] MCV 104(H) 81 - 100 fL 02/09/2023 7:38 PM PDT [facility] MCH 33.2 27.0 - 35.0 pg 02/09/2023 7:38 PM PDT [facility] MCHC 32.0 32.0 - 37.0 g/dL 02/09/2023 7:38 PM PDT [facility] RDW 13.6 12.3 - 15.4 % 02/09/2023 7:38 PM PDT [facility] Platelets 196 150 - 400 x10e3/uL 02/09/2023 7:38 PM [facility] MPV 9.4 7.4 - 10.4 fL 02/09/2023 7:38 PM [facility] NRBC % 0 0 /100 WBCs 02/09/2023 7:38 PM PDT [facility] Abs. NRBC 0.0 x10e3/uL 02/09/2023 7:38 PM PDT [facility] % Neutrophils 62 % 02/09/2023 7:38 PM PDT [facility] % Lymphocytes 24 % 02/09/2023 7:38 PM PDT [facility] % Monocytes 11 % 02/09/2023 7:38 PM PDT [facility] % Eosinophils 3 % 02/09/2023 7:38 PM PDT [facility] % Basophils 1 % 02/09/2023 7:38 PM PDT [facility] Abs. Neutrophils 3.0 1.6 - 6.9 x10e3/uL 02/09/2023 7:38 PM PDT [facility] Abs. Lymphocytes 1.2 1.1 - 4.8 x10e3/uL 02/09/2023 7:38 PM PDT [facility] Abs. Monocytes 0.5 0.0 - 1.0 x10e3/uL 02/09/2023 7:38 PM PDT [facility] Abs. Eosinophils 0.1 0.0 - 0.5 x10e3/uL 02/09/2023 7:38 PM PDT [facility] Abs. Basophils 0.0 0.0 - 0.4 x10e3/uL 02/09/2023 7:38 PM PDT [facility] Abs. Neutrophils (Auto) 3,000.0 1,600.0 - 6,900.0 /uL 02/09/2023 7:38 PM [facility] Blood Venous blood / Unknown Venipuncture / Unknown 02/09/2023 6:27 PM PDT 02/09/2023 7:03 PM PDT Monty Oshea DO LAB BLOOD ORDERAB LES [facility] [address] [place] [address], * Sedimentation rate (02/09/2023 6:27 PM PDT) Sed Rate 28 2 - 37 mm/hr 02/09/2023 9:59 PM PDT [facility] Blood Venous blood / Unknown Venipuncture / Unknown 02/09/2023 6:27 PM PDT 02/09/2023 7:03 PM PDT Geronimoer Matteoudder DO LAB BLOOD ORDERAB LES Performing Organization Address City/[facility]/ZIP Co de Phone Number [facility] [address] [place] [address], * Uric acid (02/09/2023 6:26 PM PDT) Pathologist [facility] Uric Acid, Serum/Plasma 5.2 3.5 - 8.5 mg/dL LAB CHEMISTRY METHOD 02/09/2023 9:29 PM PDT [facility] Blood Venous blood / Unknown Venipuncture / Unknown 02/09/2023 6:26 PM PDT 02/09/2023 7:03 PM PDT [facility] BLOOD ORDERAB LES Performing Organization Address [facility] Co de Phone Number [facility] [address] [place] [address], * C-reactive protein (02/09/2023 6:26 PM PDT) [facility] CRP, Serum/Plasma (mg/dL) 0.9 <1.0 mg/dL LAB CHEMISTRY METHOD 02/09/2023 7:53 PM PDT [facility] Blood Venous blood / Unknown Venipuncture / Unknown 02/09/2023 6:26 PM PDT 02/09/2023 7:03 PM PDT [facility] [employer] LAB BLOOD ORDERAB LES Performing Organization Address [facility] [facility] Co de Phone Number [facility] [address] [place] [address], * (ABNORMAL) Comprehensive metabolic panel (02/09/2023 6:26 PM PDT) Pathologist [facility] Sodium, Serum/Plasma 141 135 - 145 mmol/L LAB CHEMISTRY METHOD 02/09/2023 7:53 PM [facility] Potassium, Serum/Plasma 4.8 3.5 - 5.2 mmol/L LAB CHEMISTRY METHOD 02/09/2023 7:53 PM [facility] Chloride, Serum/Plasma 110(H) 98 - 107 mmol/L LAB CHEMISTRY METHOD 02/09/2023 7:53 PM [facility] CO2, Serum/Plasma 24 22 - 30 mmol/L LAB CHEMISTRY METHOD 02/09/2023 7:53 PM [facility] Anion Gap, Serum/Plasma 7 3 - 11 mmol/L 02/09/2023 7:53 PM [facility] Urea Nitrogen, Serum/Plasma 5.1(L) 8.0 - 27.0 mg/dL LAB CHEMISTRY METHOD 02/09/2023 7:53 PM [facility] Creatinine, Serum/Plasma 0.57(L) 0.76 - 1.27 mg/dL LAB CHEMISTRY METHOD 02/09/2023 7:53 PM [facility] Glucose, Serum/Plasma 70 65 - 99 mg/dL LAB CHEMISTRY METHOD 02/09/2023 7:53 PM [facility] Calcium, Serum/Plasma 8.4(L) 8.5 - 10.1 mg/dL LAB CHEMISTRY METHOD 02/09/2023 7:53 PM [facility] AST, Serum/Plasma 36 17 - 59 U/L LAB CHEMISTRY METHOD 02/09/2023 7:53 PM [facility] ALT, Serum/Plasma 18 <50 U/L LAB CHEMISTRY METHOD 02/09/2023 7:53 PM [facility] Alkaline Phosphatase, Serum/Plasma 54 25 - 160 U/L LAB CHEMISTRY METHOD 02/09/2023 7:53 PM [facility] Total Protein, Serum/Plasma 6.1(L) 6.3 - 8.2 g/dL LAB CHEMISTRY METHOD 02/09/2023 7:53 PM [facility] eGFR, Serum/Plasma (CKD-EPI) 107 >60 (CKD-EPI) mL/min/1. 73 m2 02/09/2023 7:53 PM [facility] Albumin, Serum/Plasma 3.4 3.4 - 5.0 g/dL LAB CHEMISTRY METHOD 02/09/2023 7:53 PM PDT [facility] Comment:Albumin concentratio ns vary with posture. Results from an upright posture may be approximately 0.3 g/dL higher than those from a recumbent posture. Bilirubin, Total, Serum/Plasma 0.4 0.2 - 1.3 mg/dL LAB CHEMISTRY METHOD 02/09/2023 7:53 PM PDT [facility] BUN/Creatinine Ratio, Serum/Plasma 8.9 6.0 - 24.0 02/09/2023 7:53 PM PDT [facility] Blood Venous blood / Unknown Venipuncture / Unknown 02/09/2023 6:26 PM PDT 02/09/2023 7:03 PM PDT Monty Oshea DO LAB BLOOD ORDERAB LES Performing Organization Address City/State/[facility] Co de Phone Number [facility] [address] [place] [address], * TELEMETRY EXTERNAL RESULTS (02/09/2023) Narrative 02/09/2023 Ordered by an unspecified provider. 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 Can be given concurrently with ibuprofen. Given 02/09/2023 11:46 PM PDT 650 mg amoxicillin-pot clavulanate (AUGMENTIN) 875-125 mg 1 tablet 1 tablet, oral, 2 times daily, First dose on 02/13/23 at 0900 Given 02/13/2023 9:13 AM PDT 1 tablet cefTRIAXone (ROCEPHIN) 2 g in sodium chloride 0.9 % mini-bag plus (NS) 50 mL IVPB 2 g, intravenous, at 100 mL/hr, Administer over 30 Minutes, Every 24 hours scheduled, First dose on Wed02/10/23 at 0900, Mini-Bag Plus bag, Indication: Skin/Skin Structure New Bag 02/12/2023 9:28 AM PDT 2 g 100 mL/hr New Bag 02/11/2023 9:13 AM PDT 2 g 100 mL/hr New Bag 02/10/2023 8:18 AM PDT 2 g 100 mL/hr heparin (porcine) injection 5,000 Units 5,000 Units, subcutaneous, Every 12 hours scheduled, First dose on Wed02/09/23 at 2100 Given 02/12/2023 9:28 AM PDT 5,000 Units Left Lower Abdomen Given 02/11/2023 8:48 PM PDT 5,000 Units L eft Upper Arm (Back) Given 02/11/2023 9:13 AM PDT 5,000 Units L eft Upper Abdomen HYDROcodone-acetaminophen (NORCO) 5-325 mg 1 tablet 1 tablet, oral, Every 6 hours PRN, moderate pain, Starting on Wed02/09/23 at 1830 Given 02/09/2023 6:54 PM PDT 1 tabl et HYDROcodone-acetaminophen (NORCO) 5-325 mg 1 tablet 1 tablet, oral, Every 4 hours PRN, moderate pain, Starting on Wed02/09/23 at 2045 Given 02/13/2023 1:32 PM PDT 1 tabl et Given 02/13/2023 9:17 AM PDT 1 tablet Given 02/13/2023 12:41 AM PDT 1 tablet lidocaine (XYLOCAINE) 10 mg/mL (1 %) injection 1 mL 1 mL, infiltration, Once as needed, for use as anesthetic for IV start, Starting on Wed02/09/23 at 1744, For 1 dose lisinopriL (PRINIVIL) tablet 10 mg 10 mg, oral, Daily, First dose (after last modification) on Wed02/10/23 at 0900 Given 02/13/2023 9:14 AM PDT 10 mg Given 02/12/2023 9:30 AM PDT 10 mg Given 02/11/2023 9:11 AM PDT 10 mg LORazepam (ATIVAN) injection 1-4 mg 1-4 mg, intravenous, As needed, CIWA score greater than 10., Starting on Wed02/09/23 at 1836, * Begin with Lorazepam 2mg IV every 20 minutes PRN CIWA greater than 10 * If CIWA Greater than 10 after 2 doses, may give Lorazepam 4mg IV every 20 minutes PRN * Continue to treat any CIWA score greater than 10 with minimum effective dosing * May call Provider for oral dosing options when patient is stable and well managed for at least 12 hours. Goal: Maintain CIWA score less than 10 and RASS between -1 and +1. NOTIFY PROVIDER: * Seizure Activity * CIWA-AR greater than 25 after cumulative Lorazepam dose if 20mg OR * If CIWA-AR score does NOT decrease in spite of multiple doses of Lorazepam * Progressive hypertension or tachycardia * If RASS -3 or lower, HOLD Lorazepam and monitor VS every 5-15 minutes until RASS between -1 and 0. LORazepam (ATIVAN) tablet 1 mg 1 mg, oral, Every 6 hours PRN, anxiety, for mild anxiety, Starting on Wed02/09/23 at 1744 melatonin tablet 5 mg 5 mg, oral, Nightly PRN, sleep, Starting on Wed02/09/23 at 1744 Given 02/11/2023 8:56 PM PDT 5 mg morphine injection 1-2 mg 1-2 mg, intravenous, Every 4 hours PRN, severe pain, Starting on Wed02/09/23 at 2044, For 3 doses, Start with 1 mg, if ineffective increase to 2 mg. Given 02/09/2023 8:57 PM PDT 1 mg naloxone (NARCAN) injection 0.04 mg 0.04 mg, intravenous, As needed, opioid reversal, respiratory depression, respiratory rate less than 8, Starting on Wed02/09/23 at 1744, Every 1 Minute PRN For Opiate Reversal 1. Draw up 0.4 mg (1 mL) in 10 mL syringe, and dilute with 9 mL of saline for an naloxone concentration of 0.04 mg/mL. 2. Give 0.04 mg (1 mL) IV push flushing solution into vein and repeat every min until resp rate greater than 10 per min and level of sedation improved. 3. Notify Provider STAT., Indications: opioid-induced respiratory depression ondansetron (ZOFRAN) injection 4 mg 4 mg, intravenous, Every 8 hours PRN, nausea, vomiting, Starting on Wed02/09/23 at 1744, 1st line antiemetic *Give IV if UNABLE to take orally. ondansetron ODT (ZOFRAN-ODT) disintegrating tablet 4 mg 4 mg, oral, Every 8 hours PRN, nausea, vomiting, Starting on Wed02/09/23 at 1744, 1st line antiemetic * Use first if patient ABLE to take PO meds Given 02/09/2023 8:59 PM PDT 4 mg polyethylene glycol (GLYCOLAX) packet 17 g 17 g, oral, Daily, First dose on Wed02/13/23 at 0900, Hold if greater than 1 BM/day Given 02/13/2023 9:14 AM PDT 17 g vitamin oral tablet 1 tablet 1 tablet, oral, Daily, First dose on Wed02/10/23 at 0900 Given 02/13/2023 9:13 AM PDT 1 tablet Given 02/12/2023 9:29 AM PDT 1 tablet Given 02/11/2023 9:12 AM PDT 1 tablet sodium chloride 0.9 % flush 10 mL 10 mL, intravenous, As needed, line care, Starting on Wed02/09/23 at 1744 THIAMINE (B-1) injection 100 mg 100 mg, intravenous push, Daily, First dose on Wed02/10/23 at 0900, give IV Push if patient UNABLE to take oral therapy. Given 02/10/2023 8:12 AM PDT 100 mg thiamine (VITAMIN B 1) 100 mg tablet 100 mg 100 mg, oral, Daily, First dose on Wed02/10/23 at 0900, May give PO if patient reliably taking oral therapy. Given 02/13/2023 9:13 AM PDT 100 mg Given 02/12/2023 9:30 AM PDT 100 mg Given 02/11/2023 9:15 AM PDT 100 mg vancomycin 1.5 gram/300 mL IVPB (premix) 1,500 mg 1,500 mg, intravenous, at 200 mL/hr, Administer over 90 Minutes, Every 12 hours, First dose on Wed02/09/23 at 2300, PREMIX. BLACK BOX WARNING: WARNING: RISK OF EMBRYO- TOXICITY DUE TO EXCIPIENTS, Indication: Other, Specify: osteo prophylaxis New Bag 02/11/2023 2:11 PM PDT 1,500 mg 200 mL/hr New Bag 02/10/2023 10:56 PM PDT 1,500 mg 200 mL/hr New Bag 02/10/2023 12:52 PM PDT 1,500 mg 200 mL/hr documented in this encounter Active and Recently Administered Medications Times are shown in PDT. Scheduled Medication Order 02/11/2023 02/12/2023 02/13/2023 amoxicillin-pot clavulanate (AUGMENTIN) 875-125 mg 1 tablet 1 tablet, oral, 2 times daily, First dose on Wed02/13/23 at 0900 0913 (Given - Provider: Emily Dean RN) cefTRIAXone (ROCEPHIN) 2 g in sodium chloride 0.9 % mini-bag plus (NS) 50 mL IVPB (CANCELED) 2 g, intravenous, at 100 mL/hr, Administer over 30 Minutes, Every 24 hours scheduled, First dose on Wed02/10/23 at 0900, Mini-Bag Plus bag, Indication: Skin/Skin Structure 0913 (New Bag - Provider: Tierra Villegas RN)0943 (Stopped - Provider: Tierra Villegas RN) 0928 (New Bag - Provider: Emily Dean RN)1020 (Stopped - Provider: Emily Dean RN) heparin (porcine) injection 5,000 Units 5,000 Units, subcutaneous, Every 12 hours scheduled, First dose on Wed02/09/23 at 2100 0913 (Given - Provider: Tierra Villegas RN)2048 (Given - Provider: Kai Ng RN) 0928 (Given - Provider: Emily Dean RN)2100 (Not Given - Provider: Kai Ng RN - Reason: Patient/family refused) 0900 (Not Given - Provider: Emily Dean RN - Reason: Patient/family refused) lisinopriL (PRINIVIL) tablet 10 mg 10 mg, oral, Daily, First dose (after last modification) on Wed02/10/23 at 0900 0911 (Given - Provider: Tierra Villegas RN) 0930 (Given - Provider: Emily Dean RN) 0914 (Given - Provider: Emily Dean RN) polyethylene glycol (GLYCOLAX) packet 17 g 17 g, oral, Daily, First dose on Wed02/13/23 at 0900, Hold if greater than 1 BM/day 0914 (Given - Provider: Emily Dean RN) vitamin oral tablet 1 tablet 1 tablet, oral, Daily, First dose on Wed02/10/23 at 0900 0912 (Given - Provider: Tierra Villegas RN) 0929 (Given - Provider: Emily Dean RN) 0913 (Given - Provider: Emily Dean RN) THIAMINE (B-1) injection 100 mg(Linked Group 1) 100 mg, intravenous push, Daily, First dose on Wed02/10/23 at 0900, give IV Push if patient UNABLE to take oral therapy. 0915 (See Alternative - Provider: Tierra Villegas RN) 0930 (See Alternative - Provider: Emily Dean RN) 09 (See Alternative - Provider: Emily Dean RN) thiamine (VITAMIN B 1) 100 mg tablet 100 mg(Linked Group 1) 100 mg, oral, Daily, First dose on Wed02/10/23 at 0900, May give PO if patient reliably taking oral therapy. 0915 (Given - Provider: Tierra Villegas RN) 0930 (Given - Provider: Emily Dean RN) 09 (Given - Provider: Emily Dean RN) vancomycin 1.5 gram/300 mL IVPB (premix) 1,500 mg (CANCELED) 1,500 mg, intravenous, at 200 mL/hr, Administer over 90 Minutes, Every 12 hours, First dose on Wed02/09/23 at 2300, PREMIX. BLACK BOX WARNING: WARNING: RISK OF EMBRYO- TOXICITY DUE TO EXCIPIENTS, Indication: Other, Specify: osteo prophylaxis 0026 (Stopped - Provider: Kai Ng RN)1411 (New Bag - Provider: Tierra Villegas RN - Comment: phx delivered)1541 (Stopped - Provider: Tierra Villegas RN) PRN Medication Order 02/11/2023 02/12/2023 02/13/2023 acetaminophen (TYLENOL) tablet 650 mg 650 mg, oral, Every 4 hours PRN, mild pain, (1-3), Starting on Wed02/09/23 at 1744, total Acetaminophen dose from ALL sources including combination products should not exceed 4,000 mg in a 24 hour period. Can be given concurrently with ibuprofen. HYDROcodone-acetaminophen (NORCO) 5-325 mg 1 tablet 1 tablet, oral, Every 4 hours PRN, moderate pain, Starting on Wed02/09/23 at 2045 0553 (Given - Provider: Kai Ng RN)1416 (Given - Provider: Tierra Villegas RN)2056 (Given - Provider: Kai Ng, SANDRITA) 0405 (Given - Provider: Kai Ng, SANDRITA)1542 (Given - Provider: Emily Dean RN - Comment: Patient requested norco for pain of 07/08)1928 (Given - Provider: Kai Ng RN) 0041 (Given - Provider: Kai Ng RN)0917 (Given - Provider: Emily Dean RN)1332 (Given - Provider: Emily Dean RN) lidocaine (XYLOCAINE) 10 mg/mL (1 %) injection 1 mL(Linked Group 2) 1 mL, infiltration, Once as needed, for use as anesthetic for IV start, Starting on Wed02/09/23 at 1744, For 1 dose LORazepam (ATIVAN) injection 1-4 mg 1-4 mg, intravenous, As needed, CIWA score greater than 10., Starting on Wed02/09/23 at 1836, * Begin with Lorazepam 2mg IV every 20 minutes PRN CIWA greater than 10 * If CIWA Greater than 10 after 2 doses, may give Lorazepam 4mg IV every 20 minutes PRN * Continue to treat any CIWA score greater than 10 with minimum effective dosing * May call Provider for oral dosing options when patient is stable and well managed for at least 12 hours. Goal: Maintain CIWA score less than 10 and RASS between -1 and +1. NOTIFY PROVIDER: * Seizure Activity * CIWA-AR greater than 25 after cumulative Lorazepam dose if 20mg OR * If CIWA-AR score does NOT decrease in spite of multiple doses of Lorazepam * Progressive hypertension or tachycardia * If RASS -3 or lower, HOLD Lorazepam and monitor VS every 5-15 minutes until RASS between -1 and 0. LORazepam (ATIVAN) tablet 1 mg 1 mg, oral, Every 6 hours PRN, anxiety, for mild anxiety, Starting on Wed02/09/23 at 1744 melatonin tablet 5 mg 5 mg, oral, Nightly PRN, sleep, Starting on Wed02/09/23 at 1744 2056 (Given - Provider: Kai Ng RN) morphine injection 1-2 mg 1-2 mg, intravenous, Every 4 hours PRN, severe pain, Starting on Wed02/09/23 at 2044, For 3 doses, Start with 1 mg, if ineffective increase to 2 mg. naloxone (NARCAN) injection 0.04 mg 0.04 mg, intravenous, As needed, opioid reversal, respiratory depression, respiratory rate less than 8, Starting on Wed02/09/23 at 1744, Every 1 Minute PRN For Opiate Reversal 1. Draw up 0.4 mg (1 mL) in 10 mL syringe, and dilute with 9 mL of saline for an naloxone concentration of 0.04 mg/mL. 2. Give 0.04 mg (1 mL) IV push flushing solution into vein and repeat every min until resp rate greater than 10 per min and level of sedation improved. 3. Notify Provider STAT., Indications: opioid-induced respiratory depression ondansetron (ZOFRAN) injection 4 mg(Linked Group 3) 4 mg, intravenous, Every 8 hours PRN, nausea, vomiting, Starting on Wed02/09/23 at 1744, 1st line antiemetic *Give IV if UNABLE to take orally. ondansetron ODT (ZOFRAN-ODT) disintegrating tablet 4 mg(Linked Group 3) 4 mg, oral, Every 8 hours PRN, nausea, vomiting, Starting on Wed02/09/23 at 1744, 1st line antiemetic * Use first if patient ABLE to take PO meds sodium chloride 0.9 % flush 10 mL(Linked Group 2) 10 mL, intravenous, As needed, line care, Starting on Wed02/09/23 at 1744 Linked Groups Order Group 1: THIAMINE (B-1) injection 100 mgJump to med 100 mg, intravenous push, Daily, First dose on Wed02/10/23 at 0900
give IV Push if patient UNABLE to take oral therapy.
Or thiamine (VITAMIN B 1) 100 mg tablet 100 mgJump to med 100 mg, oral, Daily, First dose on Wed02/10/23 at 0900
May give PO if patient reliably taking oral therapy.
Group 2: Insert peripheral IV (CANCELED) Once, On Wed02/09/23 at 1745, For 1 occurrence And lidocaine (XYLOCAINE) 10 mg/mL (1 %) injection 1 mLJump to med 1 mL, infiltration, Once as needed, for use as anesthetic for IV start, Starting on Wed02/09/23 at 1744, For 1 dose And Maintain IV access (CANCELED) Until discontinued, Starting on Wed02/09/23 at 1745, Until Specified And Saline lock IV (CANCELED) Once, On Wed02/09/23 at 1745, For 1 occurrence And sodium chloride 0.9 % flush 10 mLJump to med 10 mL, intravenous, As needed, line care, Starting on Wed02/09/23 at 1744 Group 3: ondansetron ODT (ZOFRAN-ODT) disintegrating tablet 4 mgJump to med 4 mg, oral, Every 8 hours PRN, nausea, vomiting, Starting on Wed02/09/23 at 1744
1st line antiemetic * Use first if patient ABLE to take PO meds
Or ondansetron (ZOFRAN) injection 4 mgJump to med 4 mg, intravenous, Every 8 hours PRN, nausea, vomiting, Starting on Wed02/09/23 at 1744
1st line antiemetic *Give IV if UNABLE to take orally.
documented in this encounter Advance Directives Latest Code Status on File Code Status Date Activated Date Inactivated Comments Full Code 02/09/2023 5:45 PM 02/13/2023 4:02 PM Care Teams Recycling Specialist Relationship Specialty Start Date End Date Pcp, None Selected [id number] [address] PCP - General Internal Medicine 02/10/23 documented as of this encounter
== END 2023-02-09 17:00 | disposition admitted as inpatient to this hospital (09) ==
PROVIDERS: Emergency Provider Emergency Medicine
DX: L03.116 Cellulitis of left lower limb (principal); Z20.822 Contact with and (suspected) exposure to COVID-19; Z23 Encounter for immunization
CPT/HCPCS: 36415; 73630; 73720; 80053; 83605; 83690; 84145; 85025; 85610; 85730; 87040; 87635; 90471; 96361; 96365; 96375; 96376; 99284; 99285; C9803; 90715; J0696; J2270; J2405